=== PATIENT | female | born 1945 | race Caucasian/White ===

== ENCOUNTER 2016-10-04 10:38 | Day surgery (SDC) | payer MEDICARE ==
[2016-10-04] VITALS (11 sets, daily range): BP systolic 108–137; BP diastolic 53–76
[~2016-10-04] VITALS: Ht 165.1 cm; Wt 73.9 kg
[~2016-10-04 10:38] MED LIST: ASPI-983 PO; ATOR40TA PO; ATOR40TA70 PO; ATOR80TA76 PO; CLOP75TA28 PO; HORMONE COMPOUND TOP; HYDR25TA4 PO; ISOS30TA3 PO; KETO10TA PO; LEVO250T11 PO; LISI-556 PO; METO-352 PO; NITR-65 PO; PHEN-640 PO; TAMS0.4C98 PO; TRAM1TAB7; TRAM50TA2 PO; ZOLP6.252 PO
--- OUTSIDE RECORDS SUMMARY | 2016-10-04 10:41 | XMS REPORT | Continuity of Care Document ---
Author Author [facility] Organization [facility] Address Unknown Phone Unavailable Care Team Providers Care Service Assistant Name Role Phone NO, LOCAL PHYSICIAN PCP Unavailable Insurance Providers Payer Name Policy Number Subscriber Name Relationship s Medicare [id number] Marizol Soriano 16 Self / Same As Patient Blue Cross [facility] Supp [id number] Marizol Soriano Self / Same As Patient Advance Directives Directive Response Recorded Date/Time Advance Directives No 02/04/16 11:07pm Health Care Power of Electronic Intelligence Officer No 02/04/16 11:07pm Organ Donor No 02/04/16 11:07pm Resuscitation Status Full Code 02/04/16 11:07pm Chief Complaint and Reason for Visit Chief Complaint INTRACTABLE PAIN,OBSTRUCTION,L URETERAL STONE Reason for Visit Hydronephrosis Intractable pain Left ureteral calculus Problems Active Problems Medical Problem Onset Date Status Hydronephrosis Unknown Acute Intractable pain Unknown Acute Left ureteral calculus Unknown Acute Medications Current Home Medications Medication Dose Units Route Directions Days/Qty Instructions Start Date Zolpidem Tartrate 6.25 Mg 6.25 Mg Oral Daily 02/04/16 Atorvastatin Calcium 40 Mg 40 Mg Oral Daily 90 02/04/16 Hydrochlorothiazide 25 Mg 25 Mg Oral As Needed 90 02/04/16 Levofloxacin 250 Mg 250 Mg Oral Daily 5 02/05/16 Ketorolac Tromethamine 10 Mg 10 Mg Oral Every 6 Hours 30 02/05/16 Past Home Medications Medication Directions Ordered Status Tramadol Hcl/Acetaminophen 1 Each Tablet, 02/04/16 Discontinued Social History Social History Problem Response Recorded Date/Time Alcohol Use Occasionally Uses 02/04/2016 11:15pm Recreational Drug Use No 02/04/2016 11:15pm Recent Foreign Travel No 02/04/2016 11:15pm Recent Infectious Disease Exposure No 02/04/2016 11:15pm Smoking Status Former Smoker 02/04/2016 11:07pm Query Response Start Date Stop Date Smoking Status Former Smoker Hospital Discharge Instructions Patient Instructions Physician Instructions New, Converted or Re-Newed RX: Transmitted to Pharmacy Plan of Care/Instructions/FU: Follow up with Dr. Marrero Sunday at 10:30 am in his office. If you have uncontrolled pain, fever or change in condition be re-evaluated in emergency dept. Activity as Tolerated: Yes Discharge Diet: Regular Diet Other Inst to Patient Symptoms to Report: Appetite Changes, Extremity Discoloration, Numbness/Tingling, Swelling Increased, Bleeding Excessive, Eyesight Changes, Pain Increased, Urine Color Change, Constipation(Persistent), Fever over 101 degree F, Pain/Pressure in chest, Urinating Difficulty, Cough Up/Vomit Blood, Heart Beat Irreg/Pounding, Pain/Pressure in jaw, Vaginal Bleeding Increase, Cramps in feet or legs, Lightheadedness, Pain/Pressure in shoulder, Diarrhea(Persistent), Memory Changes Suddenly, Questions/Concerns, Weight gain consecutive days, Dizziness/Fainting, Nausea/Vomiting, Shortness of Breath, Weight gain over 2 pounds If questions or concerns contact your physician Or seek help at emergency department. Care Plan Patient Instructions:: Follow up with Dr. Marrero Sunday at 10:30 am in his office.If you have uncontrolled pain, fever or change in condition jenna- evaluated in emergency dept. Plan of Care Discharge Date 02/05/16 11:06am Disposition 01 HOME, SELF-CARE Instructions/Education Provided Acute Abdominal Pain (ED) Prescriptions See Medication Section Care Plan and Goals See Discharge Instructions Section Functional Status Query Response Date Recorded Patient Orientation Person Place Time Situation Normal For Age February 05, 2016 11:06am Comprehension Ability Understands Concepts February 04, 2016 10:57pm Allergies, Adverse Reactions, Alerts Allergen Type Severity Reaction Status Last Updated hydrocodone ([id number]) Allergy Severe MIGRAINES Active 02/04/16 Oxycodone Allergy Severe RASH Active 02/04/16 Immunizations Name Given Type Date of Pneumonia Vaccine 02/03/13 Historical Date of Influenza Vaccine 06/24/15 Historical Hepatitis A Yes Historical Hepatitis B Yes Historical Tetanus Booster (TDap) Less than 5yrs Historical Vital Signs Acute Vital Signs Vital Response Date/Time Temperature (Fahrenheit) 96.7 degrees F (97.6 - 99.5) 02/05/2016 10:59am Temperature (Calculated Celsius) 35.40944 degrees C (36.4 - 37.5) 02/05/2016 6:00am Temperature Source Temporal 02/05/2016 10:59am Pulse Rate (adult) 58 bpm (60 - 90) 02/05/2016 10:59am Respiratory Rate 20 bpm (12 - 24) 02/05/2016 10:59am O2 Sat by Pulse Oximetry 94 % (88 - 100) 02/05/2016 10:59am Blood Pressure 122/58 mm Hg 02/05/2016 10:59am Blood Pressure Mean 79 mm Hg 02/05/2016 6:00am Pain Pain Intensity 3 02/05/2016 8:00am Height (Feet) 5 feet 02/04/2016 11:04pm Height (Inches) 5.00 inches 02/04/2016 11:04pm Height (Calculated Centimeters) 165.987523 cm 02/04/2016 11:04pm Weight (Pounds) 160 pounds 02/04/2016 11:04pm Weight (Ounces) 0.0 oz 02/04/2016 11:04pm Weight (Calculated Grams) 38604.780 gm 02/04/2016 11:04pm Weight (Calculated Kilograms) 72.507428 kilograms 02/04/2016 11:04pm Calculated BMI 26.6 02/04/2016 11:04pm Results Laboratory Results Test Name Result Units Flags Reference Collection Date/Time Result Date/ Time Comments White Blood Count 4.2 10^3/uL L 4.3-11.0 02/05/2016 6:10a02/05/2016 6: 56am Red Blood Count 4.10 10^6/uL L 4.35-5.85 02/05/2016 6:02/05/2016 6: 56am Hemoglobin 12.5 G/DL 11.5-16.0 02/05/2016 6:02/05/2016 6:56am Hematocrit 38 % 35-52 02/05/2016 6:02/05/2016 6:56am Mean Corpuscular Volume 93 FL 80-99 02/05/2016 6:02/05/2016 6: 56am Mean Corpuscular Hemoglobin 31 PG 25-34 02/05/2016 6:02/05/2016 6: 56am Mean Corpuscular Hemoglobin Concent 33 G/DL 32-36 02/05/2016 6: 6:56am Red Cell Distribution Width 13.2 % 10.0-14.5 02/05/2016 6:2015 6:56am Platelet Count 167 10^3/uL 130-400 02/05/2016 6:02/05/2016 6:56am Mean Platelet Volume 10.5 FL H 7.4-10.4 02/05/2016 6:02/05/2016 6: 56am Neutrophils (%) (Auto) 59 % 42-75 02/05/2016 6:02/05/2016 6:56am Lymphocytes (%) (Auto) 25 % 12-44 02/05/2016 6:02/05/2016 6:56am Monocytes (%) (Auto) 13 % H 0-12 02/05/2016 6:02/05/2016 6:56am Eosinophils (%) (Auto) 2 % 0-10 02/05/2016 6:02/05/2016 6:56am Basophils (%) (Auto) 1 % 0-10 02/05/2016 6:02/05/2016 6:56am Neutrophils # (Auto) 2.4 X 10^3 1.8-7.8 02/05/2016 6:02/05/2016 6: 56am Lymphocytes # (Auto) 1.1 X 10^3 1.0-4.0 02/05/2016 6:02/05/2016 6: 56am Monocytes # (Auto) 0.6 X 10^3 0.0-1.0 02/05/2016 6:10am 02/05/2016 6: 56am Eosinophils # (Auto) 0.1 10^3/uL 0.0-0.3 02/05/2016 6:10am 02/05/2016 6 :56am Basophils # (Auto) 0.0 10^3/uL 0.0-0.1 02/05/2016 6:10am 02/05/2016 6: 56am Urine Color YELLOW 02/04/2016 7:pm 02/04/2016 7:47pm Urine Clarity CLEAR 02/04/2016 7:02/04/2016 7:47pm Urine pH 7 5-9 02/04/2016 7:02/04/2016 7:47pm Urine Specific [place] 1.010 * 1.016-1.022 02/04/2016 7:2015 7:47pm Urine Protein NEGATIVE NEGATIVE 02/04/2016 7:02/04/2016 7:47pm Urine Glucose (UA) NEGATIVE NEGATIVE 02/04/2016 7:02/04/2016 7: 47pm Urine RBC (Auto) 5+ * NEGATIVE 02/04/2016 7:02/04/2016 7:47pm Urine Ketones 2+ * NEGATIVE 02/04/2016 7:02/04/2016 7:47pm Urine Nitrite NEGATIVE NEGATIVE 02/04/2016 7:02/04/2016 7:47pm Urine Bilirubin NEGATIVE NEGATIVE 02/04/2016 7:02/04/2016 7: 47pm Urine Urobilinogen NORMAL MG/DL NORMAL 02/04/2016 7:02/04/2016 7: 47pm Urine Leukocyte Esterase 2+ * NEGATIVE 02/04/2016 7:02/04/2016 7: 47pm Urine RBC TNTC /HPF * 02/04/2016 7:02/04/2016 7:47pm Urine WBC 5-10 /HPF * 02/04/2016 7:pm 02/04/2016 7:47pm Urine Bacteria TRACE /HPF 02/04/2016 7:02/04/2016 7:47pm Urine Squamous Epithelial Cells 0-2 /HPF 02/04/2016 7:2015 7:47pm Urine Crystals NONE /LPF 02/04/2016 7:02/04/2016 7:47pm Urine Casts NONE /LPF 02/04/2016 7:02/04/2016 7:47pm Urine Mucus NEGATIVE /LPF 02/04/2016 7:02/04/2016 7:47pm Urine Culture Indicated YES 02/04/2016 7:02/04/2016 7:47pm Sodium Level 138 MMOL/L 135-145 02/05/2016 6:02/05/2016 7:11am Potassium Level 4.1 MMOL/L 3.6-5.0 02/05/2016 6:02/05/2016 7:11am Chloride Level 107 MMOL/L 98-107 02/05/2016 6:02/05/2016 7:11am Carbon Dioxide Level 26 MMOL/L 21-32 02/05/2016 6:02/05/2016 7: 11am Anion Gap 5 MMOL/L -02/05/2016 6:02/05/2016 7:11am Blood Urea Nitrogen 14 MG/DL 7-18 02/05/2016 6:02/05/2016 7:11am Creatinine 0.79 MG/DL 0.60-1.30 02/05/2016 6:02/05/2016 7:11am BUN/Creatinine Ratio 18 02/05/2016 6:02/05/2016 7:11am Estimat Glomerular Filtration Rate > 60 02/05/2016 6:2015 7:11am GFR INTERPRETIVE DATA UNITS FOR ESTIMATED GFR (eGFR): mL/min/1.73 M2 REFERENCE RANGE FOR ESTIMATED GFR (eGFR) eGFR NORMAL eGFR >60 MODERATELY DECREASED eGFR 30-59 SEVERLY DECREASED eGFR 15-29 KIDNEY FAILURE <15 (OR DIALYSIS) Glucose Level 87 MG/DL 70-105 02/05/2016 6:02/05/2016 7:11am Glucometer 102 MG/DL 70-110 02/05/2016 9:28am 02/05/2016 9:35am Calcium Level 9.1 MG/DL 8.5-10.1 02/05/2016 6:02/05/2016 7:11am Total Bilirubin 0.6 MG/DL 0.1-1.0 02/04/2016 7:11pm 02/04/2016 7:43pm Alkaline Phosphatase 79 U/L 40-136 02/04/2016 7:11pm 02/04/2016 7:43pm Aspartate Amino Transf (AST/SGOT) 19 U/L 5-34 02/04/2016 7:11pm 2015 7:43pm Alanine Aminotransferase (ALT/SGPT) 19 U/L 0-55 02/04/2016 7:1102/03 7:43pm Total Protein 6.5 G/DL 6.4-8.2 02/04/2016 7:11pm 02/04/2016 7:43pm Albumin 4.1 G/DL 3.2-4.5 02/04/2016 7:11pm 02/04/2016 7:43pm Procedures No known history of procedures. Encounters Encounter Location Arrival/Admit Date Discharge/Depart Date Attending Provider Admitted Inpatient [facility] 02/04/16 10:06pm JULI CALI DO Recent Diagnosis Hydronephrosis Intractable pain Left ureteral calculus
--- OUTSIDE RECORDS SUMMARY | 2016-10-04 10:42 | XMS REPORT | Continuity of Care Document ---
Author Author [facility] Organization [facility] Address Unknown Phone Unavailable Care Team Providers Care Loop Puller Name Role Phone NO, LOCAL PHYSICIAN PCP Unavailable Insurance Providers Payer Name Policy Number Subscriber Name Relationship s Medicare [id number] Marizol Soriano 16 Self / Same As Patient Blue Cross [facility] Supp [id number] Marizol Soriano Self / Same As Patient Advance Directives Directive Response Recorded Date/Time Advance Directives No 02/04/16 11:07pm Health Care Power of Tire Fabricator No 02/04/16 11:07pm Organ Donor No 02/04/16 [...] Type Severity Reaction Status Last Updated hydrocodone ([id number]) Allergy Severe MIGRAINES Active 02/04/16 Oxycodone Allergy Severe RASH Active 02/04/16 Immunizations Name Given Type Date of Pneumonia Vaccine 02/03/13 Historical Date of Influenza Vaccine 06/24/15 Historical Hepatitis A Yes Historical Hepatitis B Yes Historical Tetanus Booster (TDap) Less than 5yrs Historical Vital Signs Acute Vital Signs Vital Response Date/Time Temperature (Fahrenheit) 96.7 degrees F (97.6 - 99.5) 02/05/2016 10:59am Temperature (Calculated Celsius) 35.84476 degrees C (36.4 - 37.5) 02/05/2016 6:00am [...] 5.00 inches 02/04/2016 11:04pm Height (Calculated Centimeters) 165.009853 cm 02/04/2016 11:04pm Weight (Pounds) 160 pounds 02/04/2016 11:04pm Weight (Ounces) 0.0 oz 02/04/2016 11:04pm Weight (Calculated Grams) 30192.780 gm 02/04/2016 11:04pm Weight (Calculated Kilograms) 72.039136 kilograms 02/04/2016 11:04pm Calculated BMI 26.6 02/04/2016 [...] 7 5-9 02/04/2016 7:02/04/2016 7:47pm Urine Specific [place] 1.010 * 1.016-1.022 02/04/2016 7:2015 7:47pm Urine [...] Discharge/Depart Date Attending Provider Admitted Inpatient [facility] 02/04/16 10:06pm JULI CALI DO Recent Diagnosis Hydronephrosis Intractable pain Left ureteral calculus
[2016-10-04] MEDS ORDERED: NS IV 1000 ML 1,000 ML ONE (10:49)
[2016-10-04] MEDS ORDERED: LIDOCAINE 1% INJ 20 ML (XYLOCAINE) VIAL ONE (10:49)
[2016-10-04] MEDS ORDERED: HEParin (CATH LAB) 2,000 ML IV ONE (10:49)
[2016-10-04] MEDS ORDERED: NS IV 1000 ML 1,000 ML IV SCH ×2 (10:52→13:04)
[2016-10-04 11:33] LABS: MEAN PLATELET VOLUME 10.5 FL (7.4-10.4); RED BLOOD COUNT 4.94 10^6/uL (4.35-5.85); WHITE BLOOD COUNT 3.5 10^3/uL (4.3-11.0)
--- NOTE | 2016-10-04 11:34 | Diagnostic Imaging Report ---
EXAMINATION: Portable upright radiograph of the chest. INDICATION: Coronary artery disease. Dyspnea. COMPARISON: 08/12/16. FINDINGS: The lungs are clear. The heart size is mildly enlarged. No effusion or pneumothorax. The mediastinum and mahsa appear unremarkable. Cervical and lumbar fusion hardware seen. IMPRESSION: Cardiomegaly. Dictated by: Dictated on workstation # [id number]
[2016-10-04 11:46] LABS: INR 0.9 (0.8-1.4); PROTHROMBIN TIME PATIENT 12.2 SEC (12.2-14.7)
[2016-10-04 11:53] LABS: ALANINE AMINOTRANSFERASE 26 U/L (0-55); ALBUMIN 4.5 G/DL (3.2-4.5); ANION GAP 7 MMOL/L (5-14); ASPARTATE AMINO TRANSFERASE 19 U/L (5-34); BILIRUBIN,TOTAL 0.5 MG/DL (0.1-1.0); BLOOD UREA NITROGEN 17 MG/DL (7-18); BUN/CREATININE RATIO 25; CALCIUM 10.4 MG/DL (8.5-10.1); CARBON DIOXIDE 27 MMOL/L (21-32); CHLORIDE 107 MMOL/L (98-107); CREATININE SERUM 0.68 MG/DL (0.60-1.30); GFR ESTIMATED > 60; GLUCOSE 96 MG/DL (70-105); POTASSIUM 3.9 MMOL/L (3.6-5.0); SODIUM 141 MMOL/L (135-145); TOTAL PROTEIN 7.3 G/DL (6.4-8.2)
[2016-10-04] MEDS ORDERED: MIDAZOLAM 5 MG/5 ML (VERSED) VIAL ONE (12:09)
[2016-10-04] MEDS ORDERED: METO-272 PO (12:10)
[2016-10-04] MEDS ORDERED: LISI-556 PO (12:10)
[2016-10-04] MEDS ORDERED: ATOR40TA70 PO ×2 (12:10)
[2016-10-04] MEDS ORDERED: CLOP75TA28 PO (12:10)
[2016-10-04] MEDS ORDERED: ISOS30TA3 PO (12:10)
[2016-10-04] MEDS ORDERED: ASPI-983 PO (12:10)
[2016-10-04] MEDS ORDERED: GABA-488 PO (12:12)
[2016-10-04] MEDS ORDERED: NITROGLYCERIN DRIP 25 MG/D5W 0 ML IV ONE (12:38)
[2016-10-04] MEDS ORDERED: HEParin 1000 UNIT/ML (10ML VIAL) FOR BOLUS ONE (12:39)
--- NOTE | 2016-10-04 13:06 | Discharge Inst-Post CATH ---
Discharge Inst-CATH Post Cardiac Cath D/C Inst Follow Up/Plan Appointment with Dr Govea's office in 2-4 weeks CARDIAC CATH DISCHARGE INSTRUCTIONS *Hold Metformin for 48 hours post heart cath. ACTIVITY * Go Home directly and rest. * Limit activity of the leg (or wrist if it was used) for 7 days including aerobics, swimming, jogging, bicycling, etc. * Restrict stair-climbing for 7 days if possible, if not, climb up with your non -cath leg, then bring together on the same step. * Avoid lifting, pushing, pulling or excessive movement of the affected extremity for 7 days. * Customary sexual activity may be resumed after 2 days-use caution not to use a position that strains or causes pain to the affected extremity. * No driving for 24 hours. * NO SMOKING. * Avoid straining for bowel movements for 7 days. * Gentle walking on level ground is allowed. * Returning to work will depend on the type of procedure and the results. Your doctor will discuss this with you. CALL YOUR DOCTOR FOR ANY OF THE FOLLOWING: *If bleeding from the puncture site occurs- Apply gentle pressure to site with clean cloth and call your doctor or EMS. * If a knot or lump forms under the skin, increases in size, or causes pain. * If bruising appears to be worsening or moving further down your leg instead of disappearing. * Temperature above 101 F. CARE OF YOUR GROIN INCISION; * Bruising or purple discoloration of the skin near the puncture site is common. * You may shower only, no bathtub bathing for 5 days. Be careful to avoid slipping as your leg may feel stiff. * If a closure device was used on your femoral artery, please see the attached guide regarding care of the device and your leg. * REMOVE the dressing from your groin the next day after your procedure in the shower. CARE OF YOUR WRIST INCISION; * Bruising or purple discoloration of the skin near the puncture site is common. * You may shower. * DO NOT submerge wrist. * Remove dressing in 24 hours. REGGIE GOVEA MD Oct 04, 2016 13:06
--- NOTE | 2016-10-04 13:09 | Cardiac Procedure Note-CS/ASA ---
Pre-Procedure Note Pre-Op Procedure Note H&P Reviewed The H&P was reviewed, patient examined and no changes noted. Date H&P Reviewed: Oct 04, 2016 Time H&P Reviewed: 12:00 Conscious Sedation Pre-Proced Time Reviewed: 12:00 ASA Class: 3 Airway Mallampati Classification: (chinik appropriate class) I. II. III, IV Lungs Heart ASA score ASA 1: a normal healthy patient ASA 2: a patient with a mild systemic disease (mid diabetes, controlled hypertension, obesity X ASA 3: a patient with a severe systemic disease that limits activity (angina , COPD, prior Myocardial infarction) ASA 4: a patient with an incapacitating disease that is a constant threat to life (CHF, renal failure) ASA 5: a moribund patient not expected to survive 24 hrs. (ruptured aneurysm) ASA 6: a declared brain patient whose organs are being harvested. For emergent operations, add the letter E after the classification Grade 3 Sedation Plan: Analgesia, Amnesia, Plan communicated to team members, Discussed options with patient/fam, Discussed risks with patient/fam Note The patient is an appropriate candidate to undergo the planned procedure, sedation, and anesthesia. The patient immediately re-assessed prior to indication. REGGIE BERGER MD Oct 04, 2016 13:09
[2016-10-04] MEDS ORDERED: PATIENT MAY USE OWN MEDS, ALL PO SCH (13:15)
--- NOTE | 2016-10-04 14:15 | DISCHARGE SUMMARY ---
PROCEDURE PHYSICIAN: REGGIE BERGER DATE OF PROCEDURE: 10/04/2016 REFERRING PHYSICIAN: Terri Novak Ledger BRIEF HISTORY: Mrs. Carr is a 71-year-old lady with a history of coronary artery disease, acute myocardial infarction with stent to the LAD. The patient is still having episodes of chest pain. She had a borderline lesion in the circumflex artery. I decided to proceed with cardiac catheterization to reevaluate her coronary anatomy. PROCEDURE NOTE: After explaining the procedure to the patient, all pros and cons were explained. All questions were answered. The patient signed a consent, then she was placed on the cardiac catheterization laboratory. The right groin was prepped in a sterile fashion. Local anesthesia applied to right groin. 6-Georgian sheath was placed in the right femoral artery. Combination of right and left Katie catheter were used to access the right and left coronary system, multiple views were obtained. Pigtail catheter advanced to the left ventricular cavity. Pressure was measured. Left ventriculogram was done. Pullback LV to aorta was done. At the end of the procedure, sheath was removed. Mynx device deployed, hemostasis achieved. FINDINGS: HEMODYNAMICS: LV pressure 139/15, end-diastolic pressure of 15, aortic pressure 129/64, mean of 90. No significant gradient across the aortic valve. ANATOMY: 1. Left main coronary artery is bifurcating to left anterior descending and left circumflex artery with no obstructive disease in the left main coronary artery. 2. Left anterior descending artery is moderate in size. Stent is patent with mild disease distally. No significant obstructive disease. 3. Left circumflex artery is moderate in size. The obtuse marginal branch had reportedly 70% stenosis. It was noted during the cardiac catheterization. On reevaluation today showed lesion to be about 40 to 50% at most. I decided to proceed with conservative management, no intervention. 4. Right coronary artery is moderate in size with no obstructive disease. 5. Left ventriculogram was done the right anterior oblique position. The left ventricle is normal in size. Mild hypokinesia at the anterior wall. Systolic function is in the lower normal limits. Estimated ejection fraction 50%. CONCLUSION: 1. Patent stent in the LAD. 2. 40 to 50% stenosis in the proximal first obtuse marginal branch, nonobstructive disease. 3. Normal right coronary artery. 4. Normal left ventricular size with mild hypokinesia at the anterior wall. Systolic function is in the lower normal limits. Estimated ejection fraction 50%. FINAL DIAGNOSIS: 1. Coronary artery disease. 2. Chest pain, nonspecific etiology. 3. Hypertension. 4. Hyperlipidemia Job ID: [id number] Dictated Date: 10/04/2016 13:10:10 Screen Stretcher Date: 10/04/2016 14:12:39/betty
== END 2016-10-04 16:45 ==
LOC: CATH 10:38
PROVIDERS: ATTEND Internal Medicine Cardiovascular Disease
DX: R07.89 Other chest pain (principal); I25.10 Atherosclerotic heart disease of native coronary artery without angina pectoris; I25.2 Old myocardial infarction; E78.5 Hyperlipidemia, unspecified; I10 Essential (primary) hypertension; I49.3 Ventricular premature depolarization; Z79.899 Other long term (current) drug therapy; Z95.5 Presence of coronary angioplasty implant and graft; Z87.891 Personal history of nicotine dependence
CPT/HCPCS: 36415; 71010; 80053; 85027; 85610; 85730; 87081; 93005; 93458

== ENCOUNTER 2016-12-18 10:24 | Outpatient (RCR) | payer MEDICARE ==
--- OUTSIDE RECORDS SUMMARY | 2016-10-23 09:50 | XMS REPORT | Continuity of Care Document ---
Author Author [facility] Organization [facility] Address Unknown Phone Unavailable Care Team Providers Care Jig Hand Name Role Phone DENIS FONTENOT PCP Insurance Providers Payer Name Policy Number Subscriber Name Relationship Wps Medicare [id number] Marizol Soriano Self / Same As Patient Blue [employer] [facility] Supp [id number] Marizol Soriano Self / Same As Patient Advance Directives Directive Response Recorded Date/Time Advance Directives No 10/04/16 11:10am Health Care Power of Facility Technician No 10/04/16 11:10am Organ Donor No 10/04/16 11:10am Resuscitation Status Full Code 10/04/16 11:10am Problems Active Problems Medical Problem Onset Date Status Hydronephrosis Unknown Acute Intractable pain Unknown Acute Left ureteral calculus Unknown Acute STEMI (ST elevation myocardial infarction) Unknown Acute Medications Current Home Medications Medication Dose Units Route Directions Days/Qty Instructions Start Date Zolpidem Tartrate 6.25 Mg 6.25 Mg Oral Bedtime 02/04/16 Atorvastatin Calcium 40 Mg 40 Mg Oral Bedtime 10/04/16 Metoprolol Succinate 50 Mg 50 Mg Oral Daily 10/04/16 Aspirin 81 Mg 81 Mg Oral Daily 10/04/16 Clopidogrel Bisulfate 75 Mg 75 Mg Oral Daily 10/04/16 Isosorbide Mononitrate (Imdur) 30 Mg 30 Mg Oral Daily 10/04/16 Lisinopril 5 Mg 5 Mg Oral Daily 10/04/16 Gabapentin 300 Mg 300 Mg Oral Three Times A Day as needed for Pain 10/04/16 Past Home Medications Medication Directions Ordered Status Atorvastatin Calcium 40 Mg Tablet, 40 Mg Oral Daily 02/04/16 Discontinued Tramadol Hcl/Acetaminophen 1 Each Tablet, 02/04/16 Discontinued Hydrochlorothiazide 25 Mg Tablet, 25 Mg Oral As Needed 02/04/16 Discontinued Levofloxacin 250 Mg Tablet, 250 Mg Oral Daily 02/05/16 Discontinued Ketorolac Tromethamine 10 Mg Tablet, 10 Mg Oral Every 6 Hours 02/05/16 Discontinued Atorvastatin Calcium 40 Mg Tablet, 40 Mg Oral Daily 02/07/16 Discontinued [Hormone Compound Cr] , 1 / Topically Daily 02/07/16 Discontinued Ketorolac Tromethamine 10 Mg Tablet, 10 Mg Oral Every 6 Hours for Pain Discontinued Tramadol Hcl 50 Mg Tablet, 1-2 Tab Oral Every 6 Hours for Pain 02/08/16 Discontinued Tamsulosin Hcl 0.4 Mg Cap, 0.4 Mg Oral Daily 02/08/16 Discontinued Nitrofurantoin Monohyd/M-Cryst 100 Mg Capsule, 1 Tab Oral Twice A Day With Meals 02/08/16 Discontinued Phenazopyridine Hcl 200 Mg Tablet, 1 Tab Oral Three Times A Day for Spasms Discontinued Nitrofurantoin Monohyd/M-Cryst 100 Mg Capsule, 1 Tab Oral Twice A Day Discontinued Clopidogrel Bisulfate 75 Mg Tablet, 75 Mg Oral Daily 08/14/16 Discontinued Atorvastatin Calcium 80 Mg Tablet, 80 Mg Oral Bedtime 08/14/16 Discontinued Isosorbide Mononitrate (Imdur) 30 Mg Tab.er.24h, 30 Mg Oral Daily 08/14/16 Discontinued Lisinopril 5 Mg Tablet, 5 Mg Oral Daily 08/14/16 Discontinued Aspirin 81 Mg Tablet.dr, 81 Mg Oral Daily 08/14/16 Discontinued Metoprolol Succinate 50 Mg Tab.er.24h, 50 Mg Oral Daily 08/14/16 Discontinued Atorvastatin Calcium 40 Mg Tablet, 40 Mg Oral Bedtime 10/04/16 Discontinued Social History Social History Problem Response Recorded Date/Time Alcohol Use Occasionally Uses 02/29/2016 6:45am Recreational Drug Use No 02/29/2016 6:45am Recent Foreign Travel No 10/04/2016 11:10am Recent Infectious Disease Exposure No 10/04/2016 11:10am Sexually Transmitted Disease No 08/12/2016 11:36pm HIV/AIDS No 08/12/2016 11:36pm Smoking Status Former Smoker 10/04/2016 11:12am Type Used Cigarettes 10/04/2016 5:12pm Recent Hopitalizations No 08/12/2016 11:36pm Sexually Transmitted Disease No 08/12/2016 11:36pm Query Response Start Date Stop Date Smoking Status Former Smoker Hospital Discharge Instructions Patient Instructions Physician Instructions Follow Up/Plan Appointment with Dr Govea's office in 2-4 weeks CARDIAC CATH DISCHARGE INSTRUCTIONS *Hold Metformin for 48 hours post heart cath. ACTIVITY * Go Home directly and rest. * Limit activity of the leg (or wrist if it was used) for 7 days including aerobics, swimming, jogging, bicycling, etc. * Restrict stair-climbing for 7 days if possible, if not, climb up with your non-cath leg, then bring together on the same step. * Avoid lifting, pushing, pulling or excessive movement of the affected extremity for 7 days. * Customary sexual activity may be resumed after 2 days-use caution not to use a position that strains or causes pain to the affected extremity. * No driving for 24 hours. * NO SMOKING. * Avoid straining for bowel movements for 7 days. * Gentle walking on level ground is allowed. * Returning to work will depend on the type of procedure and the results. Your doctor will discuss this with you. CALL YOUR DOCTOR FOR ANY OF THE FOLLOWING: *If bleeding from the puncture site occurs- Apply gentle pressure to site with clean cloth and call your doctor or EMS. * If a knot or lump forms under the skin, increases in size, or causes pain. * If bruising appears to be worsening or moving further down your leg instead of disappearing. * Temperature above 101 F. CARE OF YOUR GROIN INCISION; * Bruising or purple discoloration of the skin near the puncture site is common. * You may shower only, no bathtub bathing for 5 days. Be careful to avoid slipping as your leg may feel stiff. * If a closure device was used on your femoral artery, please see the attached guide regarding care of the device and your leg. * REMOVE the dressing from your groin the next day after your procedure in the shower. CARE OF YOUR WRIST INCISION; * Bruising or purple discoloration of the skin near the puncture site is common. * You may shower. * DO NOT submerge wrist. * Remove dressing in 24 hours. Plan of Care Discharge Date 10/04/16 4:45pm Instructions/Education Provided Biventricular Cardiac Pacemaker Placement (DC) Prescriptions See Medication Section Functional Status Query Response Date Recorded Patient Orientation Person Place Time Situation October 04, 2016 5:12pm Allergies, Adverse Reactions, Alerts Allergen Type Severity Reaction Status Last Updated hydrocodone ([id number]) Allergy Severe MIGRAINES Active 02/04/16 Oxycodone Allergy Severe RASH Active 02/04/16 fentanyl ([id number]) Allergy Mild RASH Active 08/13/16 Immunizations No immunization records. Vital Signs Acute Vital Signs Vital Response Date/Time Temperature (Fahrenheit) 97.6 degrees F (97.6 - 99.5) 10/04/2016 4:45pm Temperature (Calculated Celsius) 37.34398 degrees C (36.4 - 37.5) 10/04/2016 4:30pm Temperature Source Tympanic 10/04/2016 4:45pm Pulse Rate (adult) 78 bpm (60 - 90) 10/04/2016 4:45pm Respiratory Rate 16 bpm (12 - 24) 10/04/2016 4:45pm O2 Sat by Pulse Oximetry 95 % (88 - 100) 10/04/2016 4:45pm Blood Pressure 135/76 mm Hg 10/04/2016 4:45pm Blood Pressure Mean 96 mm Hg 10/04/2016 4:30pm Pain Numeric Pain Scale 0-No Pain 10/04/2016 4:45pm Pain Numeric Pain Scale 0-No Pain 10/04/2016 4:45pm Height (Feet) 5 feet 10/04/2016 11:10am Height (Inches) 5.00 inches 10/04/2016 11:10am Height (Calculated Centimeters) 165.455191 cm 10/04/2016 11:10am Weight (Pounds) 163 pounds 10/04/2016 11:10am Weight (Ounces) 0.0 oz 10/04/2016 11:10am Weight (Calculated Grams) 34874.56 gm 10/04/2016 11:10am Weight (Calculated Kilograms) 73.669838 kilograms 10/04/2016 11:10am Calculated BMI 27.1 10/04/2016 11:10am Capillary Refill Capillary Refill Less Than 3 Seconds 10/04/2016 4:45pm Results Pending Laboratory Results Test Name Collection Date/Time Procedures Procedure Status Date Provider(s) Color Doppler echocardiography Active 09/11/16 REGGIE GOVEA MD Tracing only of electrocardiogram Completed 10/04/16 REGGIE GOVEA MD Encounters Encounter Location Arrival/Admit Date Discharge/Depart Date Attending Provider Departed [facility] 10/04/16 10:38am 10/04/16 4:45pm REGGIE GOVEA MD Registered Clinic [facility] 09/11/16 1:40pm REGGIE GOVEA MD
[~2016-12-18 10:24] MED LIST changes: +GABA-488 PO; +METO-272 PO
== END 2017-01-10 12:15 | disposition home or self-care (01) ==
LOC: CR 10:24
PROVIDERS: ATTEND Internal Medicine Cardiovascular Disease
DX: Z48.812 Encounter for surgical aftercare following surgery on the circulatory system (principal); I25.2 Old myocardial infarction; Z95.5 Presence of coronary angioplasty implant and graft
CPT/HCPCS: 93798

== ENCOUNTER 2017-02-16 05:50 | Outpatient (CLI) | payer MEDICARE ==
[~2017-02-16] VITALS: Ht 165.1 cm; Wt 73.9 kg
== END 2017-02-16 14:11 ==
LOC: PREOP 05:50
PROVIDERS: ATTEND Surgery Pediatric Surgery
DX: Z01.818 Encounter for other preprocedural examination (principal); Z12.11 Encounter for screening for malignant neoplasm of colon

== ENCOUNTER 2017-02-21 08:45 | Day surgery (SDC) | payer MEDICARE ==
[~2017-02-21] VITALS: Ht 165.1 cm; Wt 73.9 kg
[2017-02-21] MEDS ORDERED: NS IV 500 ML 500 ML ONE (08:46)
[2017-02-21] MEDS ORDERED: NALOXONE 0.4 MG/ML 1 ML (NARCAN) VIAL IVP PRN (09:00)
[2017-02-21] MEDS ORDERED: NS IV 500 ML 500 ML IV PRN (09:00)
[2017-02-21] MEDS ORDERED: FLUMAZENIL (ROMAZICON) 0.1 MG/ML 5 ML VIAL INJ PRN (09:00)
[2017-02-21 09:09] VITALS: BP 128/72
--- NOTE | 2017-02-21 09:37 | Conscious Sedation/ASA ---
Conscious Sedation Pre-Proced Time Reviewed: 09:20 ASA Class: 2 Airway Mallampati Classification: ([place] appropriate class) I. II. III, IV Lungs Heart ASA score ASA 1: a normal healthy patient ASA 2: a patient with a mild systemic disease (mid diabetes, controlled hypertension, obesity ASA 3: a patient with a severe systemic disease that limits activity (angina , COPD, prior Myocardial infarction) ASA 4: a patient with an incapacitating disease that is a constant threat to life (CHF, renal failure) ASA 5: a moribund patient not expected to survive 24 hrs. (ruptured aneurysm) ASA 6: a declared brain patient whose organs are being harvested. For emergent operations, add the letter E after the classification Grade 2 Sedation Plan: Analgesia, Amnesia, Plan communicated to team members, Discussed options with patient/fam, Discussed risks with patient/fam Note The patient is an appropriate candidate to undergo the planned procedure, sedation, and anesthesia. The patient immediately re-assessed prior to indication. JLUIS GALLEGOS MD February 21, 2017 9:37 am
--- NOTE | 2017-02-21 09:38 | Progress Note-Pre Operative ---
Pre-Operative Progress Note H&P Reviewed The H&P was reviewed, patient examined and no changes noted. Date H&P Reviewed: February 21, 2017 Time H&P Reviewed: 09:20 Pre-Operative Diagnosis: rectal bleed JLUIS GALLEGOS MD February 21, 2017 9:38 am
[2017-02-21] MEDS ORDERED: MIDAZOLAM 2 MG/2 ML (VERSED) VIAL ONE ×3 (09:54→09:55)
[2017-02-21] MEDS ORDERED: fentaNYL INJECTION 100 MCG/2 ML AMP ONE ×2 (09:54)
[2017-02-21] MEDS ORDERED: LIDOCAINE JELLY 2% (XYLOCAINE) 5 ML TUBE ONE (09:54)
[2017-02-21] MEDS: fentaNYL INJECTION 100 MCG/2 ML AMP IVP PRN ×2 (10:10→10:16)
[2017-02-21] MEDS: MIDAZOLAM 2 MG/2 ML (VERSED) VIAL IVP PRN ×2 (10:15→10:18)
[2017-02-21] MEDS ORDERED: LIDOCAINE JELLY 2% (XYLOCAINE) 5 ML TUBE TOP PRN (10:45)
--- NOTE | 2017-02-21 10:58 | Progress Note-Post Operative ---
Post-Operative Progess Note Surgeon (s)/Residential Building Inspector (s) Surgeon JLUIS GALLEGOS MD Residential Building Inspector: none Pre-Operative Diagnosis rectal bleed Post-Operative Diagnosis chronic stage 2-3 ext and int hemorrhoids, small chronic anal fissure, mild sigmoid diverticulosis, no active bleeding Procedure & Operative Findings Date of Procedure 02/21/17 Procedure Performed/Findings Colonoscopy Anesthesia Type CS Estimated Blood Loss Estimated blood loss (mL): minimal Specimens/Packing Specimens Removed none JLUIS GALLEGOS MD February 21, 2017 10:58 am
--- NOTE | 2017-02-21 11:00 | Discharge Inst-Surgical ---
D/C Lap Instructions-ROSY Follow Up Appt in 2 weeks Activity as tolerated High Fiber Diet 25g or more per day Avoid Alcohol, Caffeine, Spicy [place] and Acid foods. Drink 64 fluid oz or more of fluids per day. Symptoms to Report: Fever over 101 degree F, Nausea/Vomiting If any problems/questions: Contact your physician or go to Emergency Room JLUIS GALLEGOS MD February 21, 2017 11:00 am
--- NOTE | 2017-02-21 11:01 | Discharge Inst-Surgical ---
D/C Lap Instructions-ROSY Follow Up 10 years Activity as tolerated High Fiber Diet 25g or more per day Avoid Alcohol, Caffeine, Spicy [place] and Acid foods. Drink 64 fluid oz or more of fluids per day. Symptoms to Report: Fever over 101 degree F, Nausea/Vomiting If any problems/questions: Contact your physician or go to Emergency Room JLUIS GALLEGOS MD February 21, 2017 11:01 am
[2017-02-21 11:15] VITALS: BP 107/56
[2017-02-21 11:45] VITALS: BP 112/77
[2017-02-21 12:17] VITALS: BP 112/77
--- NOTE | 2017-02-21 16:29 | OPERATIVE REPORT ---
DATE OF SERVICE: 02/21/2017 ATTENDING PURCHASE REQUEST EDITOR: BRIEN Bustos PREOPERATIVE DIAGNOSIS: Rectal bleeding. POSTOPERATIVE DIAGNOSIS: Chronic between stage II and III external and internal hemorrhoids with some signs of chronic irritation and a small fissure. No active bleeding. Mild or early sigmoid diverticulosis. PROCEDURE: Colonoscopy. SURGEON: Jluis Gallegos MD ANESTHESIA: Conscious sedation. ESTIMATED BLOOD LOSS: Minimal. FINDINGS: Chronic between stage II and III external and internal hemorrhoids with signs of chronic inflammation and a very small fissure. No active bleeding. Mild or early sigmoid diverticulosis. The remainder of the colon was normal. There were no polyps identified. DISPOSITION: The patient tolerated the procedure well. INDICATIONS FOR PROCEDURE: The patient is a 71-year-old female in need of a followup screening colonoscopy. Her last one was around 2007 and she reports that to be normal. She does report lower dull achy abdominal pain which is on an intermittent basis. She also does have intermittent episodes of bright red blood per rectum, especially when she is constipated. She does not have a history of hemorrhoidal bleeding. She does not report any family history of colon cancer. PROCEDURE IN DETAIL: The patient was brought to the endoscopy suite, laid in the left lateral decubitus position. After adequate IV pain and sedative medications and conscious sedation anesthesia, a digital rectal examination was performed. Chronic between stage II and III external and internal hemorrhoids were identified as well as a very small fissure identified. There was no active bleeding identified. Normal sphincter tone was felt and there were no palpable masses. The endoscope was then intubated into anus and rectum and gently insufflated. The endoscope was then advanced to the valves of [place] of the rectum with no polyps or any neoplasms identified. We then proceeded through the sigmoid colon where a few isolated very small diverticula identified. The endoscope was then advanced to the remainder of the descending, transverse and ascending colon and cecum. These segments were normal. There were no polyps or any neoplasms identified throughout the colon or rectum. The endoscope was then slowly withdrawn with taking a second look and suctioning of residual air with no additional findings. The patient tolerated the procedure well. We will have her continue with medical management with a high fiber diet with at least 25 grams of fiber per day to promote soft stools on a daily basis. She does not need another colonoscopy for another ten years. If she has worsening symptoms of hemorrhoids, we will have her follow up for potential hemorrhoidectomy if this becomes an issue. Job ID: [id number] DocumentID: [id number] Dictated Date: 02/21/2017 10:51:02 Community Health Nurse Date: 02/21/2017 14:50:32 Dictated By: JLUIS GALLEGOS MD
== END 2017-02-21 11:52 | disposition home or self-care (01) ==
LOC: ENDO 08:45
PROVIDERS: ATTEND Surgery Pediatric Surgery
DX: Z12.11 Encounter for screening for malignant neoplasm of colon (principal); K57.30 Diverticulosis of large intestine without perforation or abscess without bleeding; K64.2 Third degree hemorrhoids; K60.2 Anal fissure, unspecified; E78.5 Hyperlipidemia, unspecified; I10 Essential (primary) hypertension; J45.909 Unspecified asthma, uncomplicated; I25.2 Old myocardial infarction; Z79.899 Other long term (current) drug therapy; Z87.891 Personal history of nicotine dependence

== ENCOUNTER → 2017-03-28 | Outpatient (CLI) | payer MEDICARE ==
[~2017-03-28] MED LIST changes: +CATHETER FLUSH 10 ML SYR IV PRN; +REGADENOSON 0.4 MG/5 ML SYR (LEXISCAN) IV ONE
== END ==
LOC: CARD 11:39
PROVIDERS: ATTEND Physician Assistant
DX: I25.10 Atherosclerotic heart disease of native coronary artery without angina pectoris (principal); R07.89 Other chest pain; I10 Essential (primary) hypertension; E78.2 Mixed hyperlipidemia

== ENCOUNTER → 2017-05-23 | Outpatient (CLI) | payer MEDICARE ==
[~2017-05-23] VITALS: Ht 165.1 cm; Wt 73.5 kg
[~2017-05-23] MED LIST changes: +ATOR20TA66 PO; -CATHETER FLUSH 10 ML SYR IV PRN; -METO-272 PO; +METO-370 PO
[2017-05-23] MEDS: CATHETER FLUSH 10 ML SYR IV PRN ×2 (08:07→09:31)
[2017-05-23 09:27] VITALS: BP 148/79
--- NOTE | 2017-05-24 08:37 | STRESS TEST ---
DATE OF SERVICE: 05/23/2017 LEXISCAN MYOVIEW STRESS TEST REPORT REFERRING PHYSICIAN: Terri Novak. Baseline heart rate is 49, baseline blood pressure 148/79, baseline EKG is sinus rhythm with nonspecific T-wave abnormality and poor R-wave progression. In summary, the patient was injected with 10.71 mCi of technetium-99 Myoview and the resting images were obtained. Then, the patient received 0.4 mg of Lexiscan followed by 30.1 mCi of technetium-99 Myoview. Throughout the test, there were no EKG changes. The resting and stress images were reviewed and compared in the short axis, horizontal long axis, and vertical long axis views. Review of the images showed decreased uptake involving the mid to apical anterior wall, anterior septum, true apex and inferior septum. No significant reversibility was seen. SSS is 21. SDS 4. TID value 1.05. On the gated images, the left ventricle appeared to be normal size with diffuse left ventricular hypokinesia more pronounced at the apex anteroapical and inferoapical segment. Calculated ejection fraction 39%. CONCLUSION: 1. The patient tolerated Lexiscan well. 2. Baseline EKG abnormality persisted throughout test. 3. Breast attenuation with fixed defect involving the mid to apical anterior wall, true apex, anterior septum and inferoseptum with subtle ischemia. 4. Prominent left ventricle with diffuse left ventricular hypokinesia more pronounced at the apex. Calculated ejection fraction 39%. Job ID: [id number] DocumentID: [id number] Dictated Date: 05/23/2017 14:14:31 Director Of Testing Date: 05/23/2017 14:36:40 Dictated By: REGGIE BERGER MD
== END ==
LOC: CARD 07:39
PROVIDERS: ATTEND Physician Assistant
DX: I25.10 Atherosclerotic heart disease of native coronary artery without angina pectoris (principal); R07.89 Other chest pain; I10 Essential (primary) hypertension; E78.2 Mixed hyperlipidemia
CPT/HCPCS: 78452; 93017

== ENCOUNTER → 2017-06-11 | Outpatient (CLI) | payer MEDICARE ==
[~2017-06-11] MED LIST changes: -ATOR20TA66 PO; +IOHEXOL 350 MG/ML 100 ML (OMNIPAQUE 350) VIAL IV ONE; +METO-272 PO; -METO-370 PO; +NS 100 ML (IVPB) BAG IV ONE; -REGADENOSON 0.4 MG/5 ML SYR (LEXISCAN) IV ONE
--- NOTE | 2017-06-11 10:12 | Diagnostic Imaging Report ---
PROCEDURE: CT chest with and without contrast. TECHNIQUE: Multiple contiguous axial images were obtained through the chest before and after administration of intravenous contrast. INDICATION: R06.09. COMPARISON: 02/04/2016, exam. FINDINGS: There is a large pneumatocele or bulla in the right middle lobe measuring 7.7 cm in size. There is minimal adjacent atelectasis in the adjacent lung tissue. No significant emphysema changes in the lungs are noted. No bronchiectasis or fibrotic changes. There is no significant consolidation, mass, or suspicious nodule. There is no pleural or pericardial effusion. The heart size is at the upper limits of normal. The mediastinum demonstrates no significantly enlarged lymph nodes. No hilar lymphadenopathy or axillary lymphadenopathy seen. There is a mild pectus excavatum deformity in the lower chest. IMPRESSION: Stable large pneumatocele in the right middle lobe with adjacent minimal atelectasis. No significant abnormality otherwise. Dictated by: Dictated on workstation # [id number]
== END ==
LOC: RAD 08:27
PROVIDERS: ATTEND Physician Assistant Medical
DX: J98.4 Other disorders of lung (principal); R06.09 Other forms of dyspnea; J45.20 Mild intermittent asthma, uncomplicated
CPT/HCPCS: 71270

== ENCOUNTER 2017-06-25 05:29 | Outpatient (CLI) | payer MEDICARE ==
[~2017-06-25] VITALS: Ht 165.1 cm; Wt 73.5 kg
[~2017-06-25 05:29] MED LIST changes: -IOHEXOL 350 MG/ML 100 ML (OMNIPAQUE 350) VIAL IV ONE; -NS 100 ML (IVPB) BAG IV ONE
[2017-06-25] MEDS ORDERED: ATOR20TA66 PO (10:46)
== END 2017-06-25 10:48 ==
LOC: PREOP 05:29
PROVIDERS: ATTEND Surgery
DX: Z01.818 Encounter for other preprocedural examination (principal); K21.9 Gastro-esophageal reflux disease without esophagitis

== ENCOUNTER 2017-06-27 09:50 | Day surgery (SDC) | payer MEDICARE ==
[~2017-06-27] VITALS: Ht 165.1 cm; Wt 73.5 kg
[~2017-06-27 09:50] MED LIST changes: +ATOR20TA66 PO
[2017-06-27] MEDS ORDERED: NS IV 500 ML 500 ML IV PRN (09:55)
[2017-06-27] MEDS ORDERED: fentaNYL INJECTION 100 MCG/2 ML AMP IVP PRN (10:00)
[2017-06-27] MEDS ORDERED: HURRICAINE EXT TUBE (BENZOCAINE) XX PRN (10:00)
[2017-06-27 10:09] VITALS: BP 138/79
--- NOTE | 2017-06-27 10:43 | Progress Note-Pre Operative ---
Pre-Operative Progress Note H&P Reviewed The H&P was reviewed, patient examined and no changes noted. Date Seen by Provider: Jun 27, 2017 Time Seen by Provider: 10:30 Date H&P Reviewed: Jun 27, 2017 Time H&P Reviewed: 10:30 Pre-Operative Diagnosis: JLUIS READ MD Jun 27, 2017 10:43 am
--- NOTE | 2017-06-27 10:43 | Conscious Sedation/ASA ---
Conscious Sedation Pre-Proced Time Reviewed: 10:30 ASA Class: 2 Airway Mallampati Classification: ([place] appropriate class) I. II. III, IV Lungs Heart ASA score ASA 1: a normal healthy patient ASA 2: a patient with a mild systemic disease (mid diabetes, controlled hypertension, obesity ASA 3: a patient with a severe systemic disease that limits activity (angina , COPD, prior Myocardial infarction) ASA 4: a patient with an incapacitating disease that is a constant threat to life (CHF, renal failure) ASA 5: a moribund patient not expected to survive 24 hrs. (ruptured aneurysm) ASA 6: a declared brain patient whose organs are being harvested. For emergent operations, add the letter E after the classification Grade 2 Sedation Plan: Analgesia, Amnesia, Plan communicated to team members, Discussed options with patient/fam, Discussed risks with patient/fam Note The patient is an appropriate candidate to undergo the planned procedure, sedation, and anesthesia. The patient immediately re-assessed prior to indication. JLUIS GALLEGOS MD Jun 27, 2017 10:43 am
[2017-06-27] MEDS ORDERED: ONDANSETRON 4 MG/2 ML (SDV) Z0FRAN IV PRN (10:45)
[2017-06-27] MEDS ORDERED: morphine INJ 10 MG/ML 1ML (SYR OR VIAL) IV PRN (10:45)
[2017-06-27] MEDS ORDERED: ACETAMINOPHEN 325 MG TABLET/CAPLET (TYLENOL) PO PRN (10:45)
[2017-06-27] MEDS ORDERED: LIDOCAINE JELLY 2% (XYLOCAINE) 5 ML TUBE ONE (11:59)
[2017-06-27] MEDS ORDERED: fentaNYL INJECTION 100 MCG/2 ML AMP ONE ×2 (11:59)
[2017-06-27] MEDS ORDERED: HURRICAINE EXT TUBE (BENZOCAINE) ONE (12:00)
[2017-06-27] MEDS ORDERED: MIDAZOLAM 2 MG/2 ML (VERSED) VIAL ONE ×3 (12:00)
[2017-06-27] MEDS: MIDAZOLAM 2 MG/2 ML (VERSED) VIAL IVP PRN ×3 (12:45→12:50)
--- NOTE | 2017-06-27 13:18 | Progress Note-Post Operative ---
Post-Operative Progess Note Surgeon (s)/Still Runner (s) Surgeon JLUIS GALLEGOS MD Still Runner: none Pre-Operative Diagnosis GERD Post-Operative Diagnosis reflux esophagitis(class B), small HH(1.5cm), mild-mod gastritis. Procedure & Operative Findings Date of Procedure 06/27/17 Procedure Performed/Findings EGD with bx. Anesthesia Type CS Estimated Blood Loss Estimated blood loss (mL): minimal Specimens/Packing Specimens Removed GE jxn, antrum JLUIS GALLEGOS MD Jun 27, 2017 1:18 pm
--- NOTE | 2017-06-27 13:20 | Discharge Inst-Surgical ---
D/C Lap Instructions-ROSY Follow Up PRN Activity as tolerated High Fiber Diet 25g or more per day Avoid Alcohol, Caffeine, Spicy [place] and Acid foods. Drink 64 fluid oz or more of fluids per day. Symptoms to Report: Fever over 101 degree F, Nausea/Vomiting If any problems/questions: Contact your physician or go to Emergency Room JLUIS GALLEGOS MD Jun 27, 2017 1:20 pm
[2017-06-27 13:40] VITALS: BP 127/77
[2017-06-27 14:00] VITALS: BP 139/79
[2017-06-27 14:25] VITALS: BP 139/79
--- NOTE | 2017-06-28 04:49 | OPERATIVE REPORT ---
DATE OF SERVICE: 06/27/2017 ATTENDING SPANISH LITERATURE PROFESSOR: BRIEN Bustos . PREOPERATIVE DIAGNOSIS: Gastroesophageal reflux disease. POSTOPERATIVE DIAGNOSES: Reflux esophagitis class B, small hiatal hernia approximately 1.5 cm in size, mild to moderate gastritis. PROCEDURE: EGD with biopsy. SURGEON: Dr. Gallegos. ANESTHESIA: Conscious sedation. ESTIMATED BLOOD LOSS: Minimal. FINDINGS: Reflux esophagitis class B. No ulcers or strictures. A small hiatal hernia approximately 1.5 cm in size, mild to moderate gastritis. No formal ulcers, polyps or any neoplasms identified. DISPOSITION: The patient tolerated the procedure well. INDICATIONS: The patient is a 72-year-old female who we have seen before in the past for lower gastrointestinal issues. She underwent a colonoscopy in 2017 was found to have between stage II and III external and internal hemorrhoids as well as a small fissure and sigmoid diverticulosis. She reports that she has had symptoms of gastroesophageal reflux disease for years; however, in the past six months, this has increased with epigastric burning discomfort as well as increased pain. She was started on Protonix well as Carafate. She states that she continues to have symptoms despite medical management. She does drink alcohol on a daily basis. The patient was brought to the endoscopy suite, laid in the left lateral decubitus position. After adequate IV pain and sedative medications and conscious sedation anesthesia, the mouthpiece was applied. The endoscope was placed in the mouth, visualizing the pharynx and hypopharyngeal region. Vocal cords, epiglottis and vallecula identified and appeared to be normal. The endoscope was then gently intubated in the esophageal opening and esophagus insufflated. The endoscope was then advanced to the first, second and third portions of the esophagus. At the level of the GE junction, a reflux esophagitis class B identified. There were no ulcers or strictures identified in this region. A biopsy was taken with forceps with visualization of good hemostasis. The endoscope was then easily advanced in the stomach and then the endoscope retroflexed, visualizing a small hiatal hernia approximately 1.5 cm in size. A mild to moderate gastritis was noted. There were no ulcers, polyps or any neoplasms identified. A biopsy was taken of the stomach antrum for H. pylori with forceps with visualization of good hemostasis. The endoscope was then advanced to the pylorus and into the first and second portions of the duodenum, which appeared normal with no distal obstructions identified. The endoscope was then slowly withdrawn while taking a second look and suctioning of residual air with no additional findings. The patient tolerated the procedure well. We will have her continue with medical management for her reflux with Protonix 40 mg daily for the next month and then to decrease to once a day. She also needs to proceed with the necessary lifestyle and diet accommodations including a cessation of caffeinated as well as alcoholic beverages. Take in small and more frequent meals as well as avoiding eating at night. She also needs to avoid spicy, greasy and acidic foods. Job ID: [id number] DocumentID: [id number] Dictated Date: 06/27/2017 13:13:48 Hotshot Superintendent Date: 06/28/2017 04:49:05 Dictated By: JLUIS GALLEGOS MD
== END 2017-06-27 14:25 | disposition home or self-care (01) ==
LOC: ENDO 09:50
PROVIDERS: ATTEND Surgery
DX: Z79.82 Long term (current) use of aspirin; J45.909 Unspecified asthma, uncomplicated; I25.2 Old myocardial infarction; I10 Essential (primary) hypertension; Z79.899 Other long term (current) drug therapy; Z87.442 Personal history of urinary calculi; E78.5 Hyperlipidemia, unspecified; K29.70 Gastritis, unspecified, without bleeding; K44.9 Diaphragmatic hernia without obstruction or gangrene; K21.0 Gastro-esophageal reflux disease with esophagitis

== ENCOUNTER → 2017-06-29 | Outpatient (CLI) | payer MEDICARE ==
[~2017-06-29] MED LIST changes: +RT-ALBUTEROL SULF 2.5 MG/3 ML PRE-MIX VIAL IH ONE
== END ==
LOC: RT 12:32
PROVIDERS: ATTEND Physician Assistant Medical
DX: J45.20 Mild intermittent asthma, uncomplicated (principal)
CPT/HCPCS: 94060; 94640; 94726; 94729

== ENCOUNTER → 2018-05-31 | Outpatient (CLI) | payer MEDICARE ==
[~2018-05-31] MED LIST changes: -METO-272 PO; +METO-370 PO; -RT-ALBUTEROL SULF 2.5 MG/3 ML PRE-MIX VIAL IH ONE
== END ==
LOC: CARD 12:42
PROVIDERS: ATTEND Physician Assistant
DX: I25.10 Atherosclerotic heart disease of native coronary artery without angina pectoris (principal); R07.89 Other chest pain; I10 Essential (primary) hypertension; E78.5 Hyperlipidemia, unspecified; I34.0 Nonrheumatic mitral (valve) insufficiency
CPT/HCPCS: 93306

== ENCOUNTER 2018-06-03 13:01 | Outpatient (RCR) | payer MEDICARE | END 2018-06-23 | disposition home or self-care (01) | LOC: PULM 13:01 | PROVIDERS: ATTEND Internal Medicine Cardiovascular Disease | DX: J43.9 Emphysema, unspecified (principal) | CPT/HCPCS: 99211 ==

== ENCOUNTER 2018-10-03 13:00 | Outpatient (RCR) | payer MEDICARE ==
[2018-07-02 13:00] VITALS: BP 128/76
[2018-07-02 14:00] VITALS: BP 115/50
[2018-07-04 13:00] VITALS: BP 120/40
[2018-07-04 14:00] VITALS: BP 104/68
[2018-07-11 13:00] VITALS: BP 116/70
[2018-07-11 14:00] VITALS: BP 120/70
[2018-07-16 13:00] VITALS: BP 110/30
[2018-07-16 13:58] VITALS: BP 115/60
[2018-07-30 13:00] VITALS: BP 148/60
[2018-07-30 14:00] VITALS: BP 150/60
[2018-08-01 12:55] VITALS: BP 110/30
[2018-08-01 13:52] VITALS: BP 120/70
[2018-08-06 12:55] VITALS: BP_SYST 82; BP_SYST 92; BP_DIAS 60
[2018-08-06 13:50] VITALS: BP 82/60
[2018-08-08 13:00] VITALS: BP 121/60
[2018-08-08 14:05] VITALS: BP 102/67
[2018-08-13 13:00] VITALS: BP 130/50
[2018-08-13 13:54] VITALS: BP 127/70
[2018-08-20 13:00] VITALS: BP 150/60
[2018-08-20 14:00] VITALS: BP 150/50
[2018-08-22 14:00] VITALS: BP 100/77
[2018-08-29 13:00] VITALS: BP 130/50
[2018-08-29 13:58] VITALS: BP 120/50
[2018-09-03 13:00] VITALS: BP 137/68
[2018-09-03 14:00] VITALS: BP 130/60
[2018-09-05 13:00] VITALS: BP 123/50
[2018-09-05 14:00] VITALS: BP 120/60
[2018-09-10 13:00] VITALS: BP 116/70
[2018-09-10 13:45] VITALS: BP 120/60
[2018-09-19 12:55] VITALS: BP 120/48
[2018-09-19 13:42] VITALS: BP 115/50
[2018-10-03 13:00] VITALS: BP 120/50
[2018-10-03 13:44] VITALS: BP 121/60
[2018-10-10 12:57] VITALS: BP 140/59
[2018-10-10 12:58] VITALS: BP 140/59
== END 2018-10-09 | disposition home or self-care (01) ==
LOC: PULM 13:00
PROVIDERS: ATTEND Internal Medicine Cardiovascular Disease
DX: J43.9 Emphysema, unspecified (principal)

== ENCOUNTER → 2019-06-25 | Outpatient (CLI) | payer MEDICARE ==
[~2019-06-25] MED LIST changes: +CATHETER FLUSH 10 ML SYR IV PRN
[2019-06-25 09:40] VITALS: BP 153/92
[2019-06-25 09:42] VITALS: BP 176/91
--- NOTE | 2019-06-25 12:32 | STRESS TEST ---
DATE OF SERVICE: 06/25/2019 EXERCISE MYOVIEW STRESS TEST REPORT REFERRING PHYSICIAN: BRIEN Bustos Baseline heart rate is 52. Baseline blood pressure 134/100. Baseline EKG is sinus rhythm with poor R-wave progression. In summary, the patient was injected with 10.27 mCi of technetium-99 Myoview and the resting images were obtained. Then, the patient started exercising with a baseline heart rate, blood pressure and EKG mentioned above. The patient was able to exercise for a total of 5 minutes on standard Josias protocol. With peak exercise level, EKG was showing nondiagnostic changes. Blood pressure at peak stress level was 214/75. During recovery, heart rate and blood pressure returned to baseline. EKG returned to baseline. The resting and stress images were reviewed and compared in the short axis, horizontal long axis, and vertical long axis views. Review of the images showed breast attenuation with fixed defect involving the mid to apical anterior wall, true apex, anterior septum with mild reversibility. SSS is 20. SDS 3. TID value 1.02. On the gated images, the left ventricle appeared to be normal size with hypokinesia at the anterior wall, anterior apex, inferior wall. Calculated ejection fraction 42%. CONCLUSION: 1. Fair exercise tolerance, a total of 5 minutes on standard Josias protocol, total of 7 METS achieving 87% of maximum expected heart rate. 2. Severe hypertensive response to exercise returned to baseline during recovery. 3. Baseline EKG abnormality persisted throughout test. 4. Fixed defect involving the apex, anteroapical segment and anterior septum with mild periinfarct ischemia. 5. Normal left ventricular size with hypokinesia involving the anterior wall and inferior wall dyskinesia of the apex. Calculated ejection fraction 42%. Job ID: [id number] DocumentID: [id number] Dictated Date: 06/25/2019 11:48:14 Presetter Operator Date: 06/25/2019 12:31:53 Dictated By: REGGIE BERGER MD
== END ==
LOC: CARD 07:12
PROVIDERS: ATTEND Internal Medicine Cardiovascular Disease
DX: E78.5 Hyperlipidemia, unspecified (principal); I34.0 Nonrheumatic mitral (valve) insufficiency; I11.9 Hypertensive heart disease without heart failure; I25.10 Atherosclerotic heart disease of native coronary artery without angina pectoris
CPT/HCPCS: 78452; 93017

== ENCOUNTER 2019-07-09 11:26 | Day surgery (SDC) | payer MEDICARE ==
[~2019-07-09] VITALS: Ht 165 cm; Wt 75.0 kg
[2019-07-09] VITALS (10 sets, daily range): BP systolic 112–157; BP diastolic 47–118
[~2019-07-09 11:26] MED LIST changes: -CATHETER FLUSH 10 ML SYR IV PRN
[2019-07-09] MEDS ORDERED: LIDOCAINE 1% INJ 20 ML 20 ML VIAL ONE (11:40)
[2019-07-09] MEDS ORDERED: NS IV 1000 ML 1,000 ML ONE (11:40)
[2019-07-09] MEDS ORDERED: HEParin (CATH LAB) 2,000 ML IV ONE (11:40)
[2019-07-09] MEDS ORDERED: NS IV 1000 ML 1,000 ML IV SCH ×2 (11:45→15:11)
[2019-07-09 12:34] LABS: BILIRUBIN,URINE NEGATIVE (NEGATIVE); CLARITY,URINE CLEAR; COLOR,URINE YELLOW; GLUCOSE, URINE (UA) NEGATIVE (NEGATIVE); KETONES,URINE NEGATIVE (NEGATIVE); LEUKOCYTE ESTERASE ,URINE 2+ (NEGATIVE); NITRITE,URINE POSITIVE (NEGATIVE); PH,URINE 5 (5-9); PROTEIN,URINE 1+ (NEGATIVE)
[2019-07-09] MEDS ORDERED: FURO20TA4 PO (12:35)
[2019-07-09] MEDS ORDERED: CELE-63 PO (12:35)
[2019-07-09] MEDS ORDERED: FLUT1BLS IH (12:35)
[2019-07-09] MEDS ORDERED: ATOR40TA70 PO (12:35)
[2019-07-09] MEDS ORDERED: RANI-613 PO (12:35)
[2019-07-09 12:36] LABS: HEMOGLOBIN 13.2 G/DL (11.5-16.0); MEAN PLATELET VOLUME 9.9 FL (7.4-10.4); RED CELL DISTRIBUTION WIDTH 13.8 % (10.0-14.5); WHITE BLOOD COUNT 5.7 10^3/uL (4.3-11.0)
[2019-07-09] MEDS ORDERED: FURO-125 PO (12:36)
[2019-07-09 12:41] LABS: PROTHROMBIN TIME PATIENT 13.4 SEC (12.2-14.7)
[2019-07-09 12:45] LABS: WBC,URINE 50-100 /HPF
[2019-07-09 12:46] LABS: BACTERIA,URINE MODERATE /HPF
[2019-07-09 12:51] LABS: ALANINE AMINOTRANSFERASE 24 U/L (0-55); ALKALINE PHOSPHATASE 84 U/L (40-136); BILIRUBIN,TOTAL 0.4 MG/DL (0.1-1.0); BUN/CREATININE RATIO 20; CALCIUM 10.6 MG/DL (8.5-10.1); CARBON DIOXIDE 27 MMOL/L (21-32); CHLORIDE 105 MMOL/L (98-107); CHOLESTEROL 181 MG/DL (< 200); CREATININE SERUM 0.75 MG/DL (0.60-1.30); GFR ESTIMATED > 60; GLUCOSE 98 MG/DL (70-105); HDL CHOLESTEROL 50 MG/DL (40-60); POTASSIUM 4.2 MMOL/L (3.6-5.0); SODIUM 140 MMOL/L (135-145); TOTAL PROTEIN 7.1 GM/DL (6.4-8.2); TRIGLYCERIDES 68 MG/DL (<150); VLDL CHOLESTEROL 14 MG/DL (5-40)
--- NOTE | 2019-07-09 13:22 | Diagnostic Imaging Report ---
INDICATION: Dyspnea and coronary artery disease. TIME OF EXAM: 12:07 p.m. COMPARISON: Correlation is made with prior chest from 10/04/2016. FINDINGS: The heart is enlarged but stable. The lungs are clear. The pulmonary vascularity is normal. No infiltrate, effusion, or pneumothorax is seen. There are postoperative changes in the cervical spine as well as the lumbar spine. IMPRESSION: Stable cardiomegaly. No acute cardiopulmonary process is detected. Dictated by: Dictated on workstation # [id number]
--- NOTE | 2019-07-09 14:07 | Cardiac Procedure Note-CS/ASA ---
Pre-Procedure Note Pre-Op Procedure Note H&P Reviewed The H&P was reviewed, patient examined and no changes noted. Date H&P Reviewed: Jul 09, 2019 Time H&P Reviewed: 14:06 Conscious Sedation Pre-Proced Time 14:07 ASA Score 3 For ASA 3 and 4: Consider anesthesia and medical clearance. Also, for patients with a history of failed moderate sedation consider anesthesia. Airway Lungs Heart ASA score ASA 1: a normal healthy patient ASA 2: a patient with a mild systemic disease (mid diabetes, controlled hypertension, obesity x ASA 3: a patient with a severe systemic disease that limits activity (angina, COPD, prior Myocardial infarction) ASA 4: a patient with an incapacitating disease that is a constant threat to life (CHF, renal failure) ASA 5: a moribund patient not expected to survive 24 hrs. (ruptured aneurysm) ASA 6: a declared brain- patient whose organs are being harvested. For emergent operations, add the letter E after the classification Mallampati Classification Grade 3 Sedation Plan Analgesia, Amnesia, Plan communicated to team members, Discussed options with patient/fam, Discussed risks with patient/fam The patient is an appropriate candidate to undergo the planned procedure, sedation, and anesthesia. The patient immediately re-assessed prior to indication. REGGIE BERGER MD Jul 09, 2019 14:07
[2019-07-09] MEDS ORDERED: MIDAZOLAM 5 MG/5 ML (VERSED) VIAL ONE (14:11)
[2019-07-09] MEDS ORDERED: fentaNYL INJECTION 100 MCG/2 ML AMP ONE (14:12)
[2019-07-09] MEDS ORDERED: diphenhydrAMINE 50 MG/ML INJ (BENADRYL) ONE (14:43)
[2019-07-09] MEDS ORDERED: PATIENT MAY USE OWN MEDS, ALL PO SCH (15:15)
--- NOTE | 2019-07-09 15:15 | Cardiac Cath Report ---
Cardiac Cath Report Physician (s)/Social Services Assistant (s) Physician REGGIE BERGER MD Pre-Procedure Diagnosis Pre-Procedure Diagnosis: Coronary artery disease Post-Procedure Note Procedure Start Date: Jul 09, 2019 Name of Procedure: Left heart catheterization Findings/Procedure Note PROCEDURE NOTE: 74-year-old lady with history of coronary artery disease, had an abnormal stress test, scheduled for cardiac catheterization possible PTCA. After explaining the procedure to the patient, all pros and cons were explained, all questions were answered. The patient signed the consent and then she was placed on the cardiac catheterization laboratory. Groin was prepped SL fashion local anesthesia was used. Sheath placed in the right femoral artery. Katie right and left catheter were used to access the coronary system. JR catheter advanced to the left ventricular cavity, pressure was measured, pullback LV to aorta was done At the end of the procedure the sheath was removed. Closure device was used FINDINGS: Hemodynamics LV 160/14, end-diastolic pressure 14 Aorta 167/66 mean of 111 ANATOMY: Left Main is free of obstructive disease Left Anterior Descending as mild disease, patent stent with no obstructive disease, diagonal artery has mild disease Left Circumflex has [id number] disease of the proximal and midportion, nonobstructive disease Right Coronory Artery has mild disease with nonobstructive disease LV Gram was not done, pressure was measured CONCLUSION: 1. Patent stent in the proximal and mid LAD, diagonal artery has mild ostial disease nonobstructive disease 2. Mild to moderate disease at the proximal and mid circumflex artery and the first obtuse marginal branch none obstructive disease 3. Normal left ventricular end-diastolic pressure DISCUSSION AND RECOMMENDATION: medical therapy is recommended no intervention is needed Anesthesia Type: Conscious Sedation Estimated blood loss (mL): 15 ml Contrast Amount: 35 ml Total Radiation Dose: 192 mGy Post-Procedure Diagnosis Post-operative diagnosis: Chest pain Coronary artery disease Hypertension Hyperlipidemia REGGIE BERGER MD Jul 09, 2019 15:15
--- NOTE | 2019-07-09 15:17 | Discharge Inst-Post CATH ---
Discharge Inst-CATH/EP Problems Reviewed?: Yes Post Cardiac Cath/EP D/C Inst Follow Up/Plan Appointment with Dr. Govea's office in 2-4 weeks <b>CARDIAC CATH/EP PROCEDURE DISCHARGE INSTRUCTIONS</b> ACTIVITY * Go Home directly and rest. * Limit activity of the leg (or wrist if it was used) for 7 days including aerobics, swimming, jogging, bicycling, etc. * Restrict stair-climbing for 7 days if possible, if not, climb up with your non-cath leg, then bring together on the same step. * Avoid lifting, pushing, pulling or excessive movement of the affected extremity for 7 days. * Customary sexual activity may be resumed after 2 days-use caution not to use a position that strains or causes pain to the affected extremity. * No driving for 24 hours. * NO SMOKING. * Avoid straining for bowel movements for 7 days. * Gentle walking on level ground is allowed. * Returning to work will depend on the type of procedure and the results. Your doctor will discuss this with you. CALL YOUR DOCTOR FOR ANY OF THE FOLLOWING: *If bleeding from the puncture site occurs- Apply gentle pressure to site with clean cloth and call your doctor or EMS. * If a knot or lump forms under the skin, increases in size, or causes pain. * If bruising appears to be worsening or moving further down your leg instead of disappearing. * Temperature above 101 F. CARE OF YOUR GROIN INCISION; * Bruising or purple discoloration of the skin near the puncture site is common. * You may shower only, no bathtub bathing for 5 days. Be careful to avoid slipping as your leg may feel stiff. * If a closure device was used on your femoral artery, please see the attached guide regarding care of the device and your leg. * Leave dressing on FOR 24 hours. CARE OF YOUR WRIST INCISION; * Bruising or purple discoloration of the skin near the puncture site is common. * You may shower. * DO NOT submerge wrist. * Leave dressing on FOR 24 hours. REGGIE GOVEA MD Jul 09, 2019 15:17
[2019-07-09] MEDS ORDERED: FUROSEMIDE 20 MG (LASIX) TAB PO SCH (16:45)
[2019-07-09] MEDS ORDERED: NON-FORMULARY MEDICATION 1 EA EA (Fluticasone/Vilanterol (Breo Ellipta 200-25 Mcg INH) 1 E IH SCH (16:45)
[2019-07-09] MEDS ORDERED: NON-FORMULARY MEDICATION 1 EA EA (Celecoxib 200 MG) PO SCH (16:45)
[2019-07-09] MEDS ORDERED: NON-FORMULARY MEDICATION 1 EA EA (Ranitidine HCl (Zantac) 150 MG) PO SCH (16:45)
[2019-07-09] MEDS ORDERED: ZOLPIDEM 5 MG (AMBIEN) TAB PO SCH (21:00)
[2019-07-10] MEDS ORDERED: lisINopril 5 MG (PRINIVIL) TABLET PO SCH (09:00)
[2019-07-10] MEDS ORDERED: meTOproloL SUCCINATE 50 MG (TOPROL XL) TAB PO SCH (09:00)
[2019-07-10] MEDS ORDERED: ASPIRIN E.C. 81 MG (ECOTRIN) TAB PO SCH (09:00)
[2019-07-10] MEDS ORDERED: ISOSORBIDE MONONITRATE 30 MG (IMDUR) TAB PO SCH (09:00)
== END 2019-07-09 20:26 | disposition home or self-care (01) ==
LOC: CATH 11:26 → ICU 15:50 → CATH 20:26
PROVIDERS: ATTEND Internal Medicine Cardiovascular Disease
DX: I25.10 Atherosclerotic heart disease of native coronary artery without angina pectoris (principal); I10 Essential (primary) hypertension; I08.1 Rheumatic disorders of both mitral and tricuspid valves; I77.1 Stricture of artery; I73.9 Peripheral vascular disease, unspecified; E78.5 Hyperlipidemia, unspecified; Z88.5 Allergy status to narcotic agent; Z88.8 Allergy status to other drugs, medicaments and biological substances; Z87.891 Personal history of nicotine dependence; Z79.82 Long term (current) use of aspirin; Z79.899 Other long term (current) drug therapy; Z83.3 Family history of diabetes mellitus; Z82.49 Family history of ischemic heart disease and other diseases of the circulatory system; Z82.3 Family history of stroke
CPT/HCPCS: 36415; 71045; 80053; 80061; 81000; 85027; 85610; 85730; 87077; 87081; 87088; 87186; 93458

== ENCOUNTER → 2019-11-28 | Outpatient (CLI) | payer MEDICARE ==
[~2019-11-28] MED LIST changes: +CELE-63 PO; +FLUT1BLS IH; +FURO-125 PO; +FURO20TA4 PO; -METO-370 PO; +METO50TA7 PO; +RANI-613 PO; -TAMS0.4C98 PO; +TMSL.4C PO; -TRAM50TA2 PO; +TRM50T PO
[2019-11-28 08:57] LABS: ALANINE AMINOTRANSFERASE 27 U/L (0-55); ALBUMIN 4.2 GM/DL (3.2-4.5); ALKALINE PHOSPHATASE 75 U/L (40-136); BILIRUBIN,TOTAL 0.3 MG/DL (0.1-1.0); BUN/CREATININE RATIO 16; CALCIUM 10.5 MG/DL (8.5-10.1); CARBON DIOXIDE 26 MMOL/L (21-32); CHLORIDE 108 MMOL/L (98-107); CHOLESTEROL 181 MG/DL (< 200); CREATININE SERUM 0.79 MG/DL (0.60-1.30); GFR ESTIMATED > 60; GLUCOSE 97 MG/DL (70-105); HDL CHOLESTEROL 55 MG/DL (40-60); POTASSIUM 4.3 MMOL/L (3.6-5.0); SODIUM 141 MMOL/L (135-145); TOTAL PROTEIN 6.9 GM/DL (6.4-8.2); TRIGLYCERIDES 83 MG/DL (<150); VLDL CHOLESTEROL 17 MG/DL (5-40)
== END ==
LOC: LAB 08:26
PROVIDERS: ATTEND Physician Assistant
DX: I25.10 Atherosclerotic heart disease of native coronary artery without angina pectoris (principal); I10 Essential (primary) hypertension; E78.5 Hyperlipidemia, unspecified
CPT/HCPCS: 36415; 80053; 80061

== ENCOUNTER → 2020-01-29 | Outpatient (CLI) | payer MEDICARE | LOC: CARD 12:05 | PROVIDERS: ATTEND Physician Assistant | DX: I25.10 Atherosclerotic heart disease of native coronary artery without angina pectoris (principal); I10 Essential (primary) hypertension; I08.1 Rheumatic disorders of both mitral and tricuspid valves | CPT/HCPCS: 93306 ==

== ENCOUNTER → 2020-02-12 | Outpatient (CLI) | payer MEDICARE ==
[~2020-02-12] MED LIST changes: +RT-ALBUTEROL SULF 2.5 MG/3 ML PRE-MIX VIAL INH ONE; +RT-ALBUTEROL SULF 2.5 MG/3 ML PRE-MIX VIAL ONE
--- NOTE | 2020-02-12 11:27 | Diagnostic Imaging Report ---
EXAMINATION: Chest 2 view INDICATION: History of COPD. COMPARISON: Chest radiograph on 07/09/2019. FINDINGS: The lung volumes are normal. No focal consolidation is seen. No large pleural effusion or pneumothorax is seen. The cardiomediastinal silhouette is prominent, unchanged compared to the prior exam. There is calcified aortic atherosclerotic plaque. No acute osseous abnormality is seen. Surgical hardware is noted in the cervical spine and lumbar spine. IMPRESSION: 1. Stable cardiomegaly. No overt pulmonary edema. No focal consolidation or pleural effusion. Dictated by: Dictated on workstation # [id number]
== END ==
LOC: RT 10:22
PROVIDERS: ATTEND Internal Medicine Critical Care Medicine
DX: I51.7 Cardiomegaly (principal); J44.9 Chronic obstructive pulmonary disease, unspecified; R23.8 Other skin changes
CPT/HCPCS: 71046; 94060

== ENCOUNTER → 2020-11-26 | Outpatient (CLI) | payer MEDICARE ==
[~2020-11-26] MED LIST changes: +ASPI-1238 PO; -ASPI-983 PO; -ISOS30TA3 PO; +ISOS30TA82 PO; -LISI-556 PO; +LISI-729 PO; -RT-ALBUTEROL SULF 2.5 MG/3 ML PRE-MIX VIAL INH ONE; -RT-ALBUTEROL SULF 2.5 MG/3 ML PRE-MIX VIAL ONE
[2020-11-26 08:46] LABS: HEMOGLOBIN 13.9 g/dL (11.5-16.0); MEAN PLATELET VOLUME 10.5 fL (9.0-12.2); WHITE BLOOD COUNT 3.8 10^3/uL (4.3-11.0)
[2020-11-26 09:06] LABS: ALANINE AMINOTRANSFERASE 16 U/L (0-55); ALBUMIN 4.3 GM/DL (3.2-4.5); ALKALINE PHOSPHATASE 73 U/L (40-136); BILIRUBIN,TOTAL 0.3 MG/DL (0.1-1.0); BUN/CREATININE RATIO 14; CALCIUM 9.9 MG/DL (8.5-10.1); CARBON DIOXIDE 22 MMOL/L (21-32); CHLORIDE 109 MMOL/L (98-107); CHOLESTEROL 158 MG/DL (< 200); CREATININE SERUM 0.77 MG/DL (0.60-1.30); GFR ESTIMATED > 60; GLUCOSE 101 MG/DL (70-105); HDL CHOLESTEROL 55 MG/DL (40-60); SODIUM 142 MMOL/L (135-145); TRIGLYCERIDES 103 MG/DL (<150); VLDL CHOLESTEROL 21 MG/DL (5-40)
== END ==
LOC: LAB 08:17
PROVIDERS: ATTEND Nurse Practitioner Family
DX: Z00.00 Encounter for general adult medical examination without abnormal findings (principal); I10 Essential (primary) hypertension; E78.2 Mixed hyperlipidemia; R41.3 Other amnesia
CPT/HCPCS: 36415; 80053; 80061; 82607; 82746; 84443; 85027

== ENCOUNTER → 2021-01-31 | Outpatient (CLI) | payer MEDICARE ==
--- NOTE | 2021-01-31 18:16 | Diagnostic Imaging Report ---
CLINICAL INDICATION: Patient with may be having memory loss. EXAM: MRI of the brain performed without IV contrast. Sequences include axial DWI, ADC map, axial T2, axial FLAIR, axial T1, axial gradient echo, and sagittal T1. COMPARISON: None. FINDINGS: There is no evidence of acute cerebral infarct, intracranial hemorrhage, or gross mass effect. The brain parenchymal volume appears appropriate for patient's age. There are subtle focal areas of high T2 signal white matter changes throughout both cerebral hemispheres, likely representing mild chronic small vessel ischemic disease. There is normal broderick-white matter distinction. There is no significant midline shift or herniation. There is no evidence of hydrocephalus. The basal cisterns are unremarkable. The skull, extracranial soft tissue, and orbits are unremarkable. There is mild mucosal thickening involving the ethmoid sinus and frontal sinus. Temporal bones show no significant abnormality. IMPRESSION: 1: Unremarkable MRI of the brain for age. There is no evidence of acute intracranial process. 2: Mild paranasal sinus disease. Dictated by: Dictated on workstation # [id number]
== END ==
LOC: RAD 16:15
PROVIDERS: ATTEND Nurse Practitioner Family
DX: R41.3 Other amnesia (principal); J34.89 Other specified disorders of nose and nasal sinuses
CPT/HCPCS: 70551

== ENCOUNTER → 2021-11-30 | Outpatient (CLI) | payer MEDICARE ==
[~2021-11-30] MED LIST changes: +CATHETER FLUSH 10 ML SYR IVP PRN; -LISI-729 PO; +LISI5TAB20 PO
[2021-11-30 13:21] VITALS: BP 158/100
--- NOTE | 2021-11-30 14:58 | Cardiology Stress Test Report ---
Stress Test Report Date of Procedure/Referring: Date of Procedure: Nov 30, 2021 PCP Cali Govea MD Admitting Physician Lo Dalton MD Indications: CAD Baseline Heart Rate: 58 Baseline Blood Pressure: Blood Pressure Systolic: 158 Blood Pressure Diastolic: 100 Vital Signs Date Time Temp Pulse Resp B/P (MAP) Pulse Ox O2 Delivery O2 Flow Rate FiO2 11/30/21 13:21 58 158/100 (119) 99 Baseline Vital Signs Vital Signs Date Time Temp Pulse Resp B/P (MAP) Pulse Ox O2 Delivery O2 Flow Rate FiO2 11/30/21 13:21 58 158/100 (119) 99 Baseline EKG: Baseline EKG: NSR Summary: After explaining the procedure and details to the patient, she signed the consent and was brought to the stress nuclear laboratory. Patient exercised on standard Josias protocol, EKG, heart rate and blood pressure were monitored continuously, resting and stress doses of radio tracer were injected, imaging was acquired and reviewed in the short axis, horizontal long axis and vertical long axis views Patient was able to exercise for a total of 4 minutes on Josias protocol, METs 5.8 Maximum heart rate 120 Maximum blood pressure 170/106 Stress EKG, Minimal nondiagnostic changes Recovery EKG, Return to baseline TID: 0.92 SSS: 19 SDS: 3 EF: 46 Conclusion: 1. Poor exercise tolerance for a total of 4 minutes on standard Josias protocol, 5.8 METS achieving 85% of maximal expected heart rate 2. Appropriate heart rate and blood pressure response to exercise return to baseline during recovery 3. Nondiagnostic EKG changes with exercise return to baseline during recovery 4. Fixed defect involving the mid to apical anterior septum to septum and inferoseptum and true apex with small area of naldo-infarct ischemia 5. Normal left ventricular size with hypokinesia at the septum, inferoseptal area and apex, ejection fraction 46% CALI GOVEA MD Nov 30, 2021 14:58
== END ==
LOC: CARD 11:30
PROVIDERS: ATTEND Internal Medicine Cardiovascular Disease
DX: I08.0 Rheumatic disorders of both mitral and aortic valves (principal); I10 Essential (primary) hypertension; I25.10 Atherosclerotic heart disease of native coronary artery without angina pectoris
CPT/HCPCS: 78452; 93017; 93306; A9502

== ENCOUNTER 2021-12-14 09:00 | Day surgery (SDC) | payer MEDICARE ==
[~2021-12-14] VITALS: Ht 162.6 cm; Wt 80.3 kg
[2021-12-14] VITALS (8 sets, daily range): BP systolic 116–159; BP diastolic 61–84
[2021-12-14 07:25] LABS: HEMATOCRIT 45 % (35-52); HEMOGLOBIN 14.3 g/dL (11.5-16.0); MEAN CORPUSCULAR HEMOGLOBIN 30 pg (25-34); MEAN CORPUSCULAR HGB CONC 32 g/dL (32-36); MEAN CORPUSCULAR VOLUME 94 fL (80-99); MEAN PLATELET VOLUME 10.3 fL (9.0-12.2); PLATELET COUNT 208 10^3/uL (130-400); WHITE BLOOD COUNT 4.5 10^3/uL (4.3-11.0)
[2021-12-14 07:26] LABS: BILIRUBIN,URINE NEGATIVE (NEGATIVE); CLARITY,URINE CLEAR; COLOR,URINE YELLOW; GLUCOSE, URINE (UA) NEGATIVE (NEGATIVE); KETONES,URINE NEGATIVE (NEGATIVE); LEUKOCYTE ESTERASE ,URINE 2+ (NEGATIVE); NITRITE,URINE NEGATIVE (NEGATIVE); PH,URINE 5.5 (5-9); PROTEIN,URINE NEGATIVE (NEGATIVE)
[2021-12-14 07:36] LABS: BACTERIA,URINE FEW /HPF; RBC,URINE 0-2 /HPF
[2021-12-14 07:37] LABS: INR 0.9 (0.8-1.4); PROTHROMBIN TIME PATIENT 12.4 SEC (12.2-14.7)
[2021-12-14 07:46] LABS: ALBUMIN 4.3 GM/DL (3.2-4.5); BILIRUBIN,TOTAL 0.3 MG/DL (0.1-1.0); CALCIUM 10.6 MG/DL (8.5-10.1); CREATININE SERUM 0.84 MG/DL (0.60-1.30); POTASSIUM 4.1 MMOL/L (3.6-5.0); TOTAL PROTEIN 7.3 GM/DL (6.4-8.2)
--- NOTE | 2021-12-14 08:03 | Diagnostic Imaging Report ---
INDICATION: Abnormal stress test, shortness of breath EXAMINATION: Chest 12/14/2021 COMPARISON: 07/09/2019 FINDINGS: The heart is enlarged. The pulmonary vasculature is stable from previous imaging. There are no infiltrates, effusions or pneumothorax. Postoperative changes seen in the cervical spine. Postoperative changes in the lumbar spine also noted. IMPRESSION: 1. Chronic changes with no acute cardiopulmonary process. Dictated by: Dictated on workstation # [id number]
--- NOTE | 2021-12-14 08:59 | Conscious Sedation/ASA ---
Conscious Sedation Pre-Proced Time 08:59 ASA Score 3 For ASA 3 and 4: Consider anesthesia and medical clearance. Also, for patients with a history of failed moderate sedation consider anesthesia. Airway Lungs Heart ASA score ASA 1: a normal healthy patient ASA 2: a patient with a mild systemic disease (mid diabetes, controlled hypertension, obesity x ASA 3: a patient with a severe systemic disease that limits activity (angina, COPD, prior Myocardial infarction) ASA 4: a patient with an incapacitating disease that is a constant threat to life (CHF, renal failure) ASA 5: a moribund patient not expected to survive 24 hrs. (ruptured aneurysm) ASA 6: a declared brain- patient whose organs are being harvested. For emergent operations, add the letter E after the classification Mallampati Classification Grade 3 Sedation Plan Analgesia, Amnesia, Plan communicated to team members, Discussed options with patient/fam, Discussed risks with patient/fam The patient is an appropriate candidate to undergo the planned procedure, sedation, and anesthesia. The patient immediately re-assessed prior to indication. REGGIE BERGER MD Dec 14, 2021 08:59
[~2021-12-14 09:00] MED LIST changes: +ACET325T38 PO; -CATHETER FLUSH 10 ML SYR IVP PRN; +HEParin (CATH LAB) 2,000 ML IV ONE; +HEParin 1000 UNIT/ML (10ML VIAL) FOR BOLUS ONE; +LIDOCAINE 1% INJ 50 ML (XYLOCAINE) VIAL ONE; +MIDAZOLAM 5 MG/5 ML (VERSED) VIAL ONE; +NITRO DRIP 25000 MCG/D5W 250 ML IV ONE; +NS IV 1000 ML 1,000 ML IV SCH; +NS IV 1000 ML 1,000 ML ONE; +ROSU20TA32 PO; +VERAMYST; +VERAPAMIL 5 MG/2 ML (CALAN) VIAL IV ONE
--- NOTE | 2021-12-14 09:37 | Discharge Inst-Post CATH ---
Discharge Inst-CATH/EP Problems Reviewed?: Yes Post Cardiac Cath/EP D/C Inst Follow Up/Plan Appointment with Dr. Govea's office in 4 weeks <b>CARDIAC CATH/EP PROCEDURE DISCHARGE INSTRUCTIONS</b> ACTIVITY * Go Home directly and rest. * Limit activity of the leg (or wrist if it was used) for 7 days including aerobics, swimming, jogging, bicycling, etc. * Restrict stair-climbing for 7 days if possible, if not, climb up with your non-cath leg, then bring together on the same step. * Avoid lifting, pushing, pulling or excessive movement of the affected extremity for 7 days. * Customary sexual activity may be resumed after 2 days-use caution not to use a position that strains or causes pain to the affected extremity. * No driving for 24 hours. * NO SMOKING. * Avoid straining for bowel movements for 7 days. * Gentle walking on level ground is allowed. * Returning to work will depend on the type of procedure and the results. Your doctor will discuss this with you. CALL YOUR DOCTOR FOR ANY OF THE FOLLOWING: *If bleeding from the puncture site occurs- Apply gentle pressure to site with clean cloth and call your doctor or EMS. * If a knot or lump forms under the skin, increases in size, or causes pain. * If bruising appears to be worsening or moving further down your leg instead of disappearing. * Temperature above 101 F. CARE OF YOUR GROIN INCISION; * Bruising or purple discoloration of the skin near the puncture site is common. * You may shower only, no bathtub bathing for 5 days. Be careful to avoid slipping as your leg may feel stiff. * If a closure device was used on your femoral artery, please see the attached guide regarding care of the device and your leg. * Leave dressing on FOR 24 hours. CARE OF YOUR WRIST INCISION; * Bruising or purple discoloration of the skin near the puncture site is common. * You may shower. * DO NOT submerge wrist. * Leave dressing on FOR 24 hours. REGGIE GOVEA MD Dec 14, 2021 09:37
[2021-12-14] MEDS ORDERED: EZET10TA17 PO (09:38)
--- NOTE | 2021-12-14 09:41 | Cardiac Cath Report ---
Cardiac Cath Report Physician (s)/Store Clerk Cashier (s) Physician REGGIE BERGER MD Pre-Procedure Diagnosis Pre-Procedure Diagnosis: Coronary artery disease Post-Procedure Note Procedure Start Date: Dec 14, 2021 Name of Procedure: Left heart catheterization Findings/Procedure Note PROCEDURE NOTE: 76-year-old lady with a history of coronary artery disease, old myocardial infarction, had an abnormal stress test, scheduled for cardiac catheterization possible PTCA. After explaining the procedure to the patient, all pros and cons were explained, all questions were answered. The patient signed the consent and then she was placed on the cardiac catheterization laboratory. Groin was prepped SL fashion local anesthesia was used. Sheath placed in the right radial artery, [place] catheter was prolapsed to the left ventricular cavity, pressure was measured, pullback LV to aorta was done, engaged the right and left coronary system, angiogram was done. At the end of the procedure the sheath was removed. Vascular band was used FINDINGS: Hemodynamics LV 141/25, end-diastolic pressure of 25 Aorta 134/77 mean of 100 ANATOMY: Left Main is free of obstructive disease Left Anterior Descending has patent stent proximally, slow flow in the LAD. Left Circumflex is moderate in size with 40 to 50% stenosis in the mid circumflex artery, slow flow in the circumflex artery, small vessel disease Right Coronary Artery is dominant artery with slow flow in the right coronary artery LV Gram was not done pressure was measured CONCLUSION: 1. Patent stent in the mid LAD with slow flow in the LAD due to small vessel disease. Mild to moderate stenosis in the diagonal branch 2. Slow flow in the circumflex artery with 40 to 50% stenosis in the mid circumflex artery nonobstructive disease. 3. Slow flow in the right coronary artery due to small vessel disease 4. Elevated left ventricular end-diastolic pressure DISCUSSION AND RECOMMENDATION: Patient has slow flow in all coronary system due to small vessel disease, continue to maximize medical therapy, adding Zetia 10 mg to Crestor and monitor tolerance and response. Anesthesia Type: Conscious Sedation Estimated blood loss (mL): 10 ml Contrast Amount: 36 ml Total Radiation Dose: 283 mGy Post-Procedure Diagnosis Post-operative diagnosis: Chest pain Coronary artery disease Hypertension Hyperlipidemia REGGIE BERGER MD Dec 14, 2021 09:41
[2021-12-14] MEDS ORDERED: NS IV 1000 ML 1,000 ML IV SCH (09:45)
== END 2021-12-14 12:00 | disposition home or self-care (01) ==
LOC: CATH 09:00 → SDC 09:57 → CATH 12:00
PROVIDERS: ATTEND Internal Medicine Cardiovascular Disease
DX: I25.10 Atherosclerotic heart disease of native coronary artery without angina pectoris (principal); I25.2 Old myocardial infarction; I10 Essential (primary) hypertension; E78.2 Mixed hyperlipidemia; I07.1 Rheumatic tricuspid insufficiency; I65.23 Occlusion and stenosis of bilateral carotid arteries; Z87.891 Personal history of nicotine dependence; Z79.899 Other long term (current) drug therapy; Z95.5 Presence of coronary angioplasty implant and graft
CPT/HCPCS: 36430; 71045; 80053; 80061; 81000; 85027; 85610; 85730; 87081; 87088; 93005; 93458; C1894; 36415

== ENCOUNTER → 2022-01-31 | Outpatient (CLI) | payer MEDICARE ==
[~2022-01-31] MED LIST changes: +EZET10TA17 PO; -HEParin (CATH LAB) 2,000 ML IV ONE; -HEParin 1000 UNIT/ML (10ML VIAL) FOR BOLUS ONE; -LIDOCAINE 1% INJ 50 ML (XYLOCAINE) VIAL ONE; -MIDAZOLAM 5 MG/5 ML (VERSED) VIAL ONE; -NITRO DRIP 25000 MCG/D5W 250 ML IV ONE; -NS IV 1000 ML 1,000 ML IV SCH; -NS IV 1000 ML 1,000 ML ONE; -VERAPAMIL 5 MG/2 ML (CALAN) VIAL IV ONE
[2022-01-31 09:04] LABS: POTASSIUM 4.3 MMOL/L (3.6-5.0)
[2022-01-31 09:05] LABS: ALBUMIN 4.1 GM/DL (3.2-4.5)
[2022-01-31 09:06] LABS: CALCIUM 10.2 MG/DL (8.5-10.1)
[2022-01-31 09:07] LABS: TOTAL PROTEIN 6.7 GM/DL (6.4-8.2)
[2022-01-31 09:09] LABS: BILIRUBIN,TOTAL 0.4 MG/DL (0.1-1.0)
[2022-01-31 09:11] LABS: CREATININE SERUM 0.71 MG/DL (0.60-1.30)
== END ==
LOC: LAB 08:25
PROVIDERS: ATTEND Internal Medicine Cardiovascular Disease
DX: E78.2 Mixed hyperlipidemia (principal)
CPT/HCPCS: 36415; 80053; 80061

== ENCOUNTER → 2022-06-15 | Outpatient (CLI) | payer MEDICARE ==
[2022-06-15 08:37] LABS: ALBUMIN 4.1 GM/DL (3.2-4.5); BILIRUBIN,TOTAL 0.5 MG/DL (0.1-1.0); CALCIUM 10.4 MG/DL (8.5-10.1); CREATININE SERUM 0.76 MG/DL (0.60-1.30); POTASSIUM 4.4 MMOL/L (3.6-5.0)
== END ==
LOC: LAB 07:48
PROVIDERS: ATTEND Internal Medicine Cardiovascular Disease
DX: I25.10 Atherosclerotic heart disease of native coronary artery without angina pectoris (principal); I10 Essential (primary) hypertension; I07.1 Rheumatic tricuspid insufficiency; E78.2 Mixed hyperlipidemia; I65.23 Occlusion and stenosis of bilateral carotid arteries
CPT/HCPCS: 36415; 80053; 80061

== ENCOUNTER → 2022-07-12 | Outpatient (CLI) | payer MEDICARE | LOC: CARD 12:55 | PROVIDERS: ATTEND Physician Assistant | DX: I11.9 Hypertensive heart disease without heart failure (principal); I08.0 Rheumatic disorders of both mitral and aortic valves | CPT/HCPCS: 93306 ==

== ENCOUNTER → 2022-10-20 | Outpatient (CLI) | payer MEDICARE ==
--- NOTE | 2022-10-23 09:47 | Diagnostic Imaging Report ---
INDICATION: Routine screening. Comparison is made with prior mammogram of 12/07/2016 and 01/07/2015. 2-D and 3-D bilateral screening mammography was performed with CAD. Scattered fibroglandular densities are identified bilaterally. The parenchymal pattern appears stable. Intraparenchymal lymph nodes in the outer left breast are stable. No spiculated mass or malignant-appearing microcalcifications are seen. Axillae are unremarkable. IMPRESSION: No mammographic features suspicious for malignancy are identified. ACR BI-RADS Category 2: Benign findings. Result letter will be mailed to the patient. Note: At least 10% of breast cancer is not imaged by mammography. BI-RADS Category 2 Dictated by: Dictated on workstation # [id number]
== END ==
LOC: RAD 11:30
PROVIDERS: ATTEND Nurse Practitioner Family
DX: Z12.31 Encounter for screening mammogram for malignant neoplasm of breast (principal)
CPT/HCPCS: 77063; 77067

== ENCOUNTER 2023-01-29 07:56 | Emergency (ER) | payer MEDICARE ==
[~2023-01-29] VITALS: Ht 165.1 cm; Wt 79.4 kg
--- NOTE | 2023-01-29 08:20 | ED Abdominal Pain ---
General Stated Complaint: RT SIDE PAIN | NAUSEA Source of Information: Patient Exam Limitations: No Limitations History of Present Illness Date Seen by Provider: January 29, 2023 Time Seen by Provider: 08:20 Initial Comments Patient is a 77-year-old female who presents to the emergency room with a chief complaint of right lower quadrant abdominal pain. She describes it as a constant dull ache. It started about 2 hours prior to arrival and reminded her of prior kidney stone pain. She states she has been having blood in her urine for the last 2 or 3 weeks. Her primary care doctor knows about it. Nothing makes the pain any better or any worse. She has not taken anything for the pain. She was nauseous this morning. She has had prior appendectomy. No fevers chills. No abnormal vaginal discharge. She was started on Keflex for the hematuria by her primary care. She is also on Bactrim after having a skin cancer removed from her right forearm. She is also on vaginal estrogen. She has had a little black stool recently. She has had prior colonoscopy. Would take a little Tylenol but nothing stronger for the pain now. She rates it at a "3 or 4". Timing/Duration: 1-3 Hours Severity/Quality: Mild, Aching Location: RLQ Radiation: No Radiation Activities at Onset: None Associated Symptoms: Nausea/Vomiting Allergies and Home Medications Allergies Coded Allergies: hydrocodone (Verified Allergy, Severe, MIGRAINES, 02/04/16) oxycodone (Verified Allergy, Severe, RASH, pt has received Morphine w/o issue, 06/27/17) fentanyl (Verified Allergy, Mild, RASH, 08/13/16) itchy/rash Patient Home Medication List Home Medication List Reviewed: Yes Acetaminophen (Tylenol) 325 Mg Tablet, 325 MG PO PRN, (Reported) Entered as Reported by: SUNSHINE ESCOBAR on 12/14/21 0730 Aspirin (Aspirin EC) 81 Mg Tablet.dr, 81 MG PO DAILY, (Reported) Entered as Reported by: COOKIE TABARES on 10/04/16 1210 Ezetimibe (Zetia) 10 Mg Tablet, 10 MG PO DAILY Prescribed by: REGGIE BERGER on 12/14/21 0938 Fluticasone/Vilanterol (Breo Ellipta 200-25 Mcg INH) 1 Each Blst.w.dev, 1 EACH IH PRN, (Reported) Entered as Reported by: SUNSHINE ESCOBAR on 07/09/19 1235 Fluticasone/Vilanterol (Breo Ellipta 200-25 Mcg INH) 1 Each Blst.w.dev, 1 EACH IH DAILY PRN for SHORTNESS OF BREATH, (Reported) Entered as Reported by: SUNSHINE ESCOBAR on 12/14/21 07 Furosemide (Lasix) 20 Mg Tablet, 20 MG PO PRN, (Reported) Entered as Reported by: SUNSHINE ESCOBAR on 07/09/19 1236 Isosorbide Mononitrate (Isosorbide Mononitrate ER) 30 Mg Tab.er.24h, 30 MG PO DAILY, (Reported) Entered as Reported by: COOKIE TABARES on 10/04/16 1210 Lisinopril (Lisinopril) 5 Mg Tablet, 5 MG PO DAILY, (Reported) Entered as Reported by: COOKIE TABARES on 10/04/16 1210 Metoprolol Succinate (Metoprolol Succinate) 50 Mg Tab.er.24h, 50 MG PO DAILY, (Reported) Entered as Reported by: COOKIE TABARES on 10/04/16 1210 Rosuvastatin Calcium (Rosuvastatin Calcium) 20 Mg Tablet, 20 MG PO DAILY, (Reported) Entered as Reported by: SUNSHINE ESCOBAR on 12/14/21729 Tamsulosin HCl (Flomax) 0.4 Mg Cap, 0.4 MG PO HS Prescribed by: BRISEYDA GIPSON on 01/29/23 1007 Tramadol HCl (Tramadol HCl) 50 Mg Tablet, 50 MG PO Q6H PRN for PAIN Prescribed by: BRISEYDA GIPSON on 01/29/23 1008 Zolpidem Tartrate (Ambien Cr) 6.25 Mg Tab.mphase, 6.25 MG PO HS, (Reported) Entered as Reported by: SHAKILA GAYLE on 02/04/16 1829 [Veramyst] , 1 EACH NA PRN, (Reported) Entered as Reported by: SUNSHINE ESCOBAR on 12/14/21729 Review of Systems Review of Systems Constitutional: see HPI Respiratory: No Symptoms Reported Cardiovascular: No Symptoms Reported Gastrointestinal: Abdominal Pain, Nausea Genitourinary: Hematuria Musculoskeletal: no symptoms reported Skin: no symptoms reported All Other Systems Reviewed Negative Unless Noted: Yes Past Jvnvqim-Xmkogv-Dzqkfj Hx Immunizations Up To Date Tetanus Booster (TDap): Less than 5yrs PED Vaccines UTD: No Seasonal Allergies Seasonal Allergies: No Past Medical History Appendectomy, Coronary Stent, Hysterectomy, Orthopedic, Tonsillectomy Respiratory: Yes (HOLE IN HER RIGHT LUNG) Currently Using CPAP: No Currently Using BIPAP: No Cardiac: Yes ("AN EXTRA HEARTBEAT") Coronary Artery Disease, Heart Attack, High Cholesterol, Hypertension Neurological: Yes Headaches /Migraines Reproductive Disorders: No Female Reproductive Disorders: Denies Sexually Transmitted Disease: No HIV/AIDS: No Kidney Stones Gastrointestinal: Yes Gastroesophageal Reflux, Gastrointestinal Bleed Scoliosis, Chronic Back Pain Cataract Loss of Vision: Denies Hearing Impairment: Denies Cancer: No Sleep Difficulties Blood Disorders: No Adverse Reaction/Blood Tranf: No (HAS HAD BLOOD WITH NO PROBLEMS) Family Medical History Cardiovascular disease 19 FATHER, , Age:92, Onset:Unknown Dementia 19 FATHER, , Age:92, Onset:Unknown Diabetes mellitus 19 MOTHER, Onset:Unknown FH: stroke 19 MOTHER, Onset:Unknown (X2) No Pertinent Family Hx Physical Exam Vital Signs Vital Signs - First Documented 01/29/23 01/29/23 08:02 10:23 Temp 36.8 Pulse 85 Resp 17 B/P (MAP) 167/129 (142) Pulse Ox 97 O2 Delivery Room Air Capillary Refill : Height/Weight/BMI Height: 5'5.00" Weight: 169lbs. 0.8oz. 73.458251xe; 30.37 BMI Method:Stated General Appearance: WD/WN, no apparent distress Neck: full range of motion Respiratory: lungs clear, normal breath sounds, no respiratory distress, no accessory muscle use Cardiovascular: regular rate, rhythm Gastrointestinal: normal bowel sounds, soft, guarding (mild), tenderness (mild RLQ tenderness; no rebound; ) Extremities: normal range of motion Back: CVA tenderness (R) Neurologic/Psychiatric: alert, normal mood/affect, oriented x 3 Skin: normal color, warm/dry Progress/Results/Core Measures Results/Orders Lab Results Laboratory Tests Test 01/29/23 08:04 01/29/23 08:19 Range/Units Urine Color ORANGE Urine Clarity CLOUDY Urine pH 6.0 5-9 Urine Specific [place] 1.020 1.016-1.022 Urine Protein 2+ H NEGATIVE Urine Glucose (UA) NEGATIVE NEGATIVE Urine Ketones NEGATIVE NEGATIVE Urine Nitrite NEGATIVE NEGATIVE Urine Bilirubin NEGATIVE NEGATIVE Urine Urobilinogen 0.2 < = 1.0 MG/DL Urine Leukocyte Esterase NEGATIVE NEGATIVE Urine RBC (Auto) 3+ H NEGATIVE Urine RBC TNTC H /HPF Urine WBC 0-2 /HPF Urine Squamous Epithelial Cells 10-25 H /HPF Urine Crystals PRESENT H /LPF Urine Amorphous Sediment FEW NAI URATES H /LPF Urine Bacteria FEW H /HPF Urine Casts NONE /LPF Urine Mucus NEGATIVE /LPF Urine Culture Indicated YES White Blood Count 3.9 L 4.3-11.0 10^3/uL Red Blood Count 4.59 3.80-5.11 10^6/uL Hemoglobin 13.7 11.5-16.0 g/dL Hematocrit 43 35-52 % Mean Corpuscular Volume 93 80-99 fL Mean Corpuscular Hemoglobin 30 25-34 pg Mean Corpuscular Hemoglobin Concent 32 32-36 g/dL Red Cell Distribution Width 14.4 10.0-14.5 % Platelet Count 216 130-400 10^3/uL Mean Platelet Volume 10.3 9.0-12.2 fL Immature Granulocyte % (Auto) 1 % Neutrophils (%) (Auto) 63 42-75 % Lymphocytes (%) (Auto) 20 12-44 % Monocytes (%) (Auto) 8 0-12 % Eosinophils (%) (Auto) 7 0-10 % Basophils (%) (Auto) 1 0-10 % Neutrophils # (Auto) 2.5 1.8-7.8 10^3/uL Lymphocytes # (Auto) 0.8 L 1.0-4.0 10^3/uL Monocytes # (Auto) 0.3 0.0-1.0 10^3/uL Eosinophils # (Auto) 0.3 0.0-0.3 10^3/uL Basophils # (Auto) 0.0 0.0-0.1 10^3/uL Immature Granulocyte # (Auto) 0.0 0.0-0.1 10^3/uL Sodium Level 141 135-145 MMOL/L Potassium Level 4.2 3.6-5.0 MMOL/L Chloride Level 109 H 98-107 MMOL/L Carbon Dioxide Level 25 21-32 MMOL/L Anion Gap 7 5-14 MMOL/L Blood Urea Nitrogen 10 7-18 MG/DL Creatinine 0.82 0.60-1.30 MG/DL Estimat Glomerular Filtration Rate 73 BUN/Creatinine Ratio 12 Glucose Level 118 H 70-105 MG/DL Calcium Level 9.9 8.5-10.1 MG/DL Corrected Calcium 9.8 8.5-10.1 MG/DL Total Bilirubin 0.3 0.1-1.0 MG/DL Aspartate Amino Transf (AST/SGOT) 17 5-34 U/L Alanine Aminotransferase (ALT/SGPT) 16 0-55 U/L Alkaline Phosphatase 81 40-136 U/L Total Protein 7.0 6.4-8.2 GM/DL Albumin 4.1 3.2-4.5 GM/DL Micro Results Microbiology 01/29/23 Urine Culture - Final, Complete 3 or more isolates My Orders Orders - BRISEYDA GIPSON MD Ed Iv/Invasive Line Start (01/29/23 08:19) Cbc With Automated Diff (01/29/23 08:19) Comprehensive Metabolic Panel (01/29/23 08:19) Ua Culture If Indicated (01/29/23 08:19) Acetaminophen Tablet (Tylenol Tablet) (01/29/23 08:30) Urine Culture (01/29/23 08:04) Abdomen/Kub 1view (01/29/23 08:41) Ct Abd/Pelvis Wo(Kidney Stone) (01/29/23 08:41) Medications Given in ED Vital Signs/I&O 01/29/23 01/29/23 08:02 10:23 Temp 36.8 36.1 Pulse 85 75 Resp 17 17 B/P (MAP) 167/129 (142) 133/65 Pulse Ox 97 O2 Delivery Room Air Room Air Progress Progress Note : Time: 10:03 Progress Note Patient seen and evaluated by me. Evaluation today includes physical exam, CBC, Chem-12, urinalysis, KUB and CT scan renal stone protocol. Physical exam remarkable for well-developed well-nourished 77-year-old female, no acute distress. Mild tenderness in the right flank on palpation, no CVA tenderness. Heart is regular, lungs are clear. No lower extremity edema. No neurologic deficits. Differential diagnosis based on history and physical exam, kidney stone, pyelonephritis, partial small bowel obstruction. Labs and imaging reviewed by me, CT and KUB read by radiology. CBC is normal slightly low white blood cell count at 3.8. Chem-12 Glodich grossly unremark able. KUB, no visible stone. CT scan of the abdomen and pelvis renal stone protocol showed a 6 mm stone at the right U PJ and a 4 mm stone at the right UVJ with moderate hydronephrosis. Patient is treated in the emergency department with a gram of Tylenol. She states that her pain is well controlled at the moment. She is not requiring any IV pain medications. No concerns for UTI/pyelo from work up. She states that tramadol works well for her at home. We will put her on Flomax and refer her to urology in [place]. Return precautions provided in both verbal and written format. All questions are sought and answered. Diagnostic Imaging Diagonstic Imaging: CT Comments [facility]. [place], [place] NAME: YOVANY SORIANO [facility] REC#: [id number] PT STATUS: REG ER : 1945 PHYSICIAN: BRISEYDA GIPSON MD ADMIT DATE: 01/29/23/ER Draft Date of Exam:01/29/23 CT ABD/PELVIS WO(KIDNEY STONE) PROCEDURE: CT urinary tract, rule out kidney stone. TECHNIQUE: Multiple contiguous axial images were obtained through the abdomen and pelvis without the use of intravenous contrast. Auto Exposure Controls were utilized during the CT exam to meet ALARA standards for radiation dose reduction. INDICATION: Flank pain, hematuria COMPARISON: 02/04/2016 FINDINGS: Scarring with large bullae is again identified within the right lung base. Minimal left basilar scarring and/or atelectasis also noted. The gallbladder is at the upper limits of normal in size without significant adjacent inflammatory stranding. The unenhanced liver and spleen are unremarkable. The adrenal glands are unremarkable. The unenhanced pancreas is unremarkable. A 0.6 cm calculus is identified within the right ureteropelvic junction. This is resulting in moderate right-sided hydronephrosis. Additionally, a 0.4 cm calculus is noted within the right ureterovesicular junction. This is new since 2016. The right kidney is otherwise unremarkable. The left kidney and left ureter are unremarkable. Moderate vascular calcifications without aneurysmal dilatation of the abdominal aorta. The urinary bladder is decompressed, therefore not well evaluated. The uterus is nonvisualized, likely surgically absent. No abnormal adnexal mass lesion. No bowel obstruction or pneumatosis. No significant adenopathy, free air, or free fluid in abdomen or pelvis. [place] left curvature of the spine. Extensive postsurgical changes identified throughout the lumbar spine extending into the lower thoracic spine. No acute osseous abnormality with scattered osseous degenerative changes present. IMPRESSION: Moderate right-sided hydronephrosis. This is predominantly from a 0.6 cm calculus within the right ureteropelvic junction. However, an additional 0.4 cm calculus is also noted within the right ureterovesicular junction. No evidence of left-sided hydronephrosis. Extensive postsurgical and degenerative changes within the spine without acute osseous abnormality. Additional findings as above. Dictated on workstation # [id number] Dict: 01/29/23922 Trans: 01/29/23933 CV [id number] Interpreted by: LAURA MEDRANO MD Electronically signed by: Diagonstic Imaging: Xray Comments [facility], [place] NAME: YOVANY SORIANO [facility] REC#: [id number] PT STATUS: REG ER : 1945 PHYSICIAN: BRISEYDA GIPSON MD ADMIT DATE: 01/29/23/ER Draft Date of Exam:01/29/23 ABDOMEN/KUB 1VIEW INDICATION: Right flank pain and hematuria. Abdominal film obtained at 9:16 a.m. and compared to 03/13/2016. There is prominent stool throughout the colon. There are extensive postop changes in the lumbar spine with multilevel fusion. There is some mild small bowel gas which may represent a mild ileus. There are multiple pelvic phleboliths. Previous left ureteral stent seen on 03/13/2016 has been removed. IMPRESSION: Prominent stool throughout the colon, findings compatible with mild ileus. Postop changes in lumbar spine. Dictated on workstation # [id number] Dict: 01/29/23942 Trans: 01/29/23945 CVB [id number] Interpreted by: GAETANO MCINTYRE MD Electronically signed by: Departure Impression Primary Impression: Ureterolithiasis Disposition: 01 HOME, SELF-CARE Condition: Stable Departure-Patient Inst. Decision time for Depature: 10:03 Referrals: JENNIE ESTRADA MD (PCP/Family) Primary Care Physician Patient Instructions: Kidney Stones (DC) Add. Discharge Instructions: Drink plenty of fluids to stay well-hydrated. Take the Flomax nightly. This will help increase urine flow. Tramadol 1 every 6 hours as needed for pain. You can alternate this with [id number] extra strength Tylenol 2 tablets every 6 hours. If you develop a fever, worsening pain, vomiting or any other emergent, concerning symptoms please return to the emergency room for reevaluation. Please call and follow-up with a urologist in [place]. Scripts Tamsulosin HCl (Flomax) 0.4 Mg Cap 0.4 MG PO HS, #14 CAP Prov: BRISEYDA GIPSON MD 01/29/23 Tramadol HCl (Tramadol HCl) 50 Mg Tablet 50 MG PO Q6H PRN for PAIN, #15 TAB 0 Refills Prov: BRISEYDA GIPSON MD 01/29/23 Copy Copies To 1: JENNIE ESTRADA MD, KATHRYN M MD January 29, 2023 08:20
[2023-01-29 08:24] LABS: BILIRUBIN,URINE NEGATIVE (NEGATIVE); CLARITY,URINE CLOUDY; COLOR,URINE ORANGE; GLUCOSE, URINE (UA) NEGATIVE (NEGATIVE); KETONES,URINE NEGATIVE (NEGATIVE); LEUKOCYTE ESTERASE ,URINE NEGATIVE (NEGATIVE); NITRITE,URINE NEGATIVE (NEGATIVE); PROTEIN,URINE 2+ (NEGATIVE)
[2023-01-29] MEDS ORDERED: ACETAMINOPHEN 500 MG TAB (TYLENOL) PO ONE (08:30)
[2023-01-29 08:31] LABS: BASOPHILS % (AUTO) 1 % (0-10); EOSINOPHILS # (AUTO) 0.3 10^3/uL (0.0-0.3); EOSINOPHILS % (AUTO) 7 % (0-10); HEMATOCRIT 43 % (35-52); HEMOGLOBIN 13.7 g/dL (11.5-16.0); LYMPHOCYTES # (AUTO) 0.8 10^3/uL (1.0-4.0); LYMPHOCYTES % (AUTO) 20 % (12-44); MEAN CORPUSCULAR HEMOGLOBIN 30 pg (25-34); MEAN CORPUSCULAR HGB CONC 32 g/dL (32-36); MEAN CORPUSCULAR VOLUME 93 fL (80-99); MEAN PLATELET VOLUME 10.3 fL (9.0-12.2); MONOCYTES # (AUTO) 0.3 10^3/uL (0.0-1.0); MONOCYTES % (AUTO) 8 % (0-12); NEUTROPHILS # (AUTO) 2.5 10^3/uL (1.8-7.8); NEUTROPHILS % (AUTO) 63 % (42-75); PLATELET COUNT 216 10^3/uL (130-400); WHITE BLOOD COUNT 3.9 10^3/uL (4.3-11.0)
[2023-01-29 08:35] LABS: AMORPHOUS SEDIMENT,UR FEW AMOR URATES /LPF; BACTERIA,URINE FEW /HPF; RBC,URINE TNTC /HPF; WBC,URINE 0-2 /HPF
[2023-01-29 09:33] LABS: ALBUMIN 4.1 GM/DL (3.2-4.5); BILIRUBIN,TOTAL 0.3 MG/DL (0.1-1.0); CALCIUM 9.9 MG/DL (8.5-10.1); CREATININE SERUM 0.82 MG/DL (0.60-1.30); POTASSIUM 4.2 MMOL/L (3.6-5.0)
--- NOTE | 2023-01-29 09:35 | Diagnostic Imaging Report ---
PROCEDURE: CT urinary tract, rule out kidney stone. TECHNIQUE: Multiple contiguous axial images were obtained through the abdomen and pelvis without the use of intravenous contrast. Auto Exposure Controls were utilized during the CT exam to meet ALARA standards for radiation dose reduction. INDICATION: Flank pain, hematuria COMPARISON: 02/04/2016 FINDINGS: Scarring with large bullae is again identified within the right lung base. Minimal left basilar scarring and/or atelectasis also noted. The gallbladder is at the upper limits of normal in size without significant adjacent inflammatory stranding. The unenhanced liver and spleen are unremarkable. The adrenal glands are unremarkable. The unenhanced pancreas is unremarkable. A 0.6 cm calculus is identified within the right ureteropelvic junction. This is resulting in moderate right-sided hydronephrosis. Additionally, a 0.4 cm calculus is noted within the right ureterovesicular junction. This is new since 2015. The right kidney is otherwise unremarkable. The left kidney and left ureter are unremarkable. Moderate vascular calcifications without aneurysmal dilatation of the abdominal aorta. The urinary bladder is decompressed, therefore not well evaluated. The uterus is nonvisualized, likely surgically absent. No abnormal adnexal mass lesion. No bowel obstruction or pneumatosis. No significant adenopathy, free air, or free fluid in abdomen or pelvis. [place] left curvature of the spine. Extensive postsurgical changes identified throughout the lumbar spine extending into the lower thoracic spine. No acute osseous abnormality with scattered osseous degenerative changes present. IMPRESSION: Moderate right-sided hydronephrosis. This is predominantly from a 0.6 cm calculus within the right ureteropelvic junction. However, an additional 0.4 cm calculus is also noted within the right ureterovesicular junction. No evidence of left-sided hydronephrosis. Extensive postsurgical and degenerative changes within the spine without acute osseous abnormality. Additional findings as above. Dictated by: Dictated on workstation # [id number]
--- NOTE | 2023-01-29 09:46 | Diagnostic Imaging Report ---
INDICATION: Right flank pain and hematuria. Abdominal film obtained at 9:16 a.m. and compared to 03/13/2016. There is prominent stool throughout the colon. There are extensive postop changes in the lumbar spine with multilevel fusion. There is some mild small bowel gas which may represent a mild ileus. There are multiple pelvic phleboliths. Previous left ureteral stent seen on 03/13/2016 has been removed. IMPRESSION: Prominent stool throughout the colon, findings compatible with mild ileus. Postop changes in lumbar spine. Dictated by: Dictated on workstation # [id number]
[2023-01-29] MEDS ORDERED: TRM50T PO (10:07)
[2023-01-29] MEDS ORDERED: TMSL.4C PO (10:07)
[2023-01-29 10:23] VITALS: BP 133/65
== END 2023-01-29 10:24 | disposition home or self-care (01) ==
LOC: EDUNIT# 07:56 → ER 07:58
DX: N13.2 Hydronephrosis with renal and ureteral calculous obstruction (principal); Z79.2 Long term (current) use of antibiotics; Z79.891 Long term (current) use of opiate analgesic
CPT/HCPCS: 36415; 74018; 74176; 80053; 81000; 85025; 87088